=== PATIENT | male | born 2000 | race Hispanic/Latino ===

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

== ENCOUNTER 2021-03-31 19:19 | Emergency (ER) | payer OTHER, SELFPAY ==
--- OUTSIDE RECORDS SUMMARY | 2021-03-31 19:22 | XMS REPORT | Continuity of Care Document ---
:2000 Author Organization [facility] t Address [address] [place] [address] Care Team Providers Name Role Phone Francois [...] Clinicians Facility Department ID 2020-12-04 2020-12-04 [facility] [id number] 17:46:00 19:55:00 Erin Truong [id number] [place] [id number] [place] [id number] 2020-09-01 2020-09-02 [facility] [id number] 22:13:00 00:19:00 Bg Truong [id number] [place] [id number] [place] [id number] 2020-09-01 2020-09-01 Orders Doctor [place] [id number] 00:00:00 00:00:00 Only UnassignedRADHA [id number] [place] [facility] [id number] Results This patient has no known results.
--- NOTE | 2021-03-31 20:26 | RAD REPORT ---
EXAM DESCRIPTION: RAD - Foot Left 3 View - 03/31/2021 8:13 pm CLINICAL HISTORY: Left Foot pain status post injury FINDINGS: No fracture or dislocation is seen. Hallux valgus deformity. A radiopaque foreign body is not seen
--- NOTE | 2021-03-31 20:48 | EDPHYS ---
Physician Documentation [facility] Name: Fred Gaston Age: 20 yrs Sex: Male : 2000 Arrival Date: 03/31/2021 Time: 19:24 Bed 26 Private MD: ED Physician Sohan Fischer HPI: 03/31 20:05 This 20 yrs old Male presents to ER via Ambulatory with complaints of Foot cp Injury. 20:05 The patient presents with a puncture wound, from a nail. The complaints affect the cp plantar surface left foot. Context: the patient can fully bear weight, the patient is able to ambulate, with mild difficulty. Onset: The symptoms/episode began/occurred just prior to arrival. Associated signs and symptoms: The patient has no apparent associated signs or symptoms. Treatment prior to arrival includes: no previous treatment. Patient reports nail penetrated foot through shoes. Historical: - Allergies: 19:38 No Known Allergies; bb - Home Meds: 19:38 None [Active]; bb - PMHx: 19:38 None; bb - PSHx: 19:38 None; bb - Immunization history:: Last tetanus immunization: unknown. - Social history:: Smoking status: Patient denies any tobacco usage or history of. ROS: 20:10 Skin: Positive for puncture, of the plantar surface of left foot. cp 20:10 Constitutional: Negative for fever. cp 20:10 MS/extremity: Negative for paresthesias. 20:10 All other systems are negative. Exam: 20:15 Constitutional: The patient appears in no acute distress, alert, awake, non-toxic, well cp developed, well nourished. 20:15 Head/Face: Normocephalic, atraumatic. cp 20:15 Chest/axilla: Inspection: normal. 20:15 Cardiovascular: Rate: normal, Pulses: Pulses are 2+ in left dorsalis pedis artery. 20:15 Respiratory: the patient does not display signs of respiratory distress, Respirations: normal. 20:15 Skin: injury, that can be described as no foreign body, without bleeding, puncture(s), that are deep, of the plantar surface of left foot. Vital Signs: 19:37 BP 126 / 75; Pulse 84; Resp 16; Temp 98.6(TE); Pulse Ox 99% on R/A; Weight 72.57 kg bb (R); Height 5 ft. 11 in. (180.34 cm) (R); Pain 6/10; 19:37 Body Mass Index 22.32 (72.57 kg, 180.34 cm) bb MDM: 19:58 Patient medically screened. cp 20:00 Differential diagnosis: open fracture, foreign body. cp 20:47 Data reviewed: vital signs, nurses notes, radiologic studies, plain films. cp 20:47 Test interpretation: by ED physician or midlevel provider: plain radiologic studies. cp Counseling: I had a detailed discussion with the patient and/or guardian regarding: the historical points, exam findings, and any diagnostic results supporting the discharge/admit diagnosis, radiology results, to return to the emergency department if symptoms worsen or persist or if there are any questions or concerns that arise at home. Response to treatment: the patient's symptoms have markedly improved after treatment, and as a result, I will discharge patient. 03/31 19:58 Order name: XRAY Foot LEFT 3 View; Complete Time: 20:41 cp 03/31 20:41 Interpretation: Reviewed report. 03/31 19:58 Order name: Wound Care: normal saline and betadine; Complete Time: 21:50 cp 03/31 20:46 Order name: Wound dressing; Complete Time: 21:50 cp 03/31 20:46 Order name: Crutches; Complete Time: 21:50 cp Administered Medications: 20:37 Drug: Tetanus-Diphtheria Toxoid Adult 0.5 ml {Insight Director: [employer]. Exp: bb 11/27/2022. Lot #: [id number]. } Route: IM; Site: right deltoid; 21:00 Follow up: Response: No adverse reaction bb Disposition: 21:00 Chart complete. 04/01 05:44 Co-signature as Attending Physician, Sohan Fischer MD. rn Disposition Summary: 03/31/21 20:47 Discharge Ordered Location: Home cp Problem: new cp Symptoms: have improved cp Condition: Stable cp Diagnosis - Puncture wound without foreign body of foot - left cp Followup: cp - With: Private Physician - When: 2 - 3 days - Reason: Worsening of condition Discharge Instructions: - Discharge Summary Sheet cp - Puncture Wound cp Forms: - Medication Reconciliation Form cp - Thank You Letter cp - Antibiotic Education cp - Prescription Opioid Use cp Prescriptions: - Cipro 500 mg Oral Tablet - take 1 tablet by ORAL route every 12 hours for 7 days; 14 tablet; Refills: 0, cp Product Selection Permitted - Ibuprofen 800 mg Oral Tablet - take 1 tablet by ORAL route every 8 hours As needed take with food; 30 tablet; cp Refills: 0, Product Selection Permitted Signatures: Dispatcher [employer] Deisy Massey, DINH RN Sohan Freed MD MD rn Page, Corey, PA PA cp
--- NOTE | 2021-03-31 20:48 | ER ---
Nurse's Notes [facility] Name: Fred Gaston Age: 20 yrs Sex: Male : 2000 Arrival Date: 03/31/2021 Time: 19:24 Bed 26 Private MD: Diagnosis: Puncture wound without foreign body of foot-left Presentation: 03/31 19:37 Chief complaint: Patient states: he stepped on a nail with his left foot approx 2 hours bb ago. Coronavirus screen: At this time, the client does not indicate any symptoms associated with coronavirus-19. Ebola Screen: No symptoms or risks identified at this time. Initial Sepsis Screen: Does the patient meet any 2 criteria? No. Patient's initial sepsis screen is negative. Does the patient have a suspected source of infection? No. Patient's initial sepsis screen is negative. Risk Assessment: Do you want to hurt yourself or someone else? Patient reports no desire to harm self or others. Onset of symptoms was March 31, 2021. 19:37 Method Of Arrival: Ambulatory bb 19:37 Acuity: LEON 4 bb Triage Assessment: 19:38 General: Appears in no apparent distress. uncomfortable, Behavior is calm, cooperative. bb Pain: Complains of pain in left foot Pain currently is 6 out of 10 on a pain scale. Neuro: Level of Consciousness is awake, alert, obeys commands, Oriented to person, place, time, situation. Cardiovascular: Capillary refill < 3 seconds Patient's skin is warm and dry. Respiratory: Respiratory effort is even, unlabored, Respiratory pattern is regular. GI: No signs and/or symptoms were reported involving the gastrointestinal system. Derm: Skin is pink, warm \T\ dry. Musculoskeletal: Circulation, motion, and sensation intact. Reports pain in left foot. Injury Description: Puncture sustained to left foot. Historical: - Allergies: 19:38 No Known Allergies; bb - Home Meds: 19:38 None [Active]; bb - PMHx: 19:38 None; bb - PSHx: 19:38 None; bb - Immunization history:: Last tetanus immunization: unknown. - Social history:: Smoking status: Patient denies any tobacco usage or history of. Screenin:42 Abuse screen: Denies threats or abuse. Nutritional screening: No deficits noted. bb Tuberculosis screening: No symptoms or risk factors identified. Fall Risk None identified. Assessment: 19:42 Reassessment: No changes from previously documented assessment. see triage assessment. bb 21:30 Reassessment: Patient is alert, oriented x 3, equal unlabored respirations, skin bb warm/dry/pink. pt verbalized understanding of and agrees to plan of care discharge instructions given pt demonstrated good technique with crutches. Vital Signs: 19:37 BP 126 / 75; Pulse 84; Resp 16; Temp 98.6(TE); Pulse Ox 99% on R/A; Weight 72.57 kg bb (R); Height 5 ft. 11 in. (180.34 cm) (R); Pain 6/10; 19:37 Body Mass Index 22.32 (72.57 kg, 180.34 cm) bb ED Course: 19:24 Patient arrived in ED. ag3 19:38 Triage completed. bb 19:38 Arm band placed on Patient placed in an exam room, on a stretcher. bb 19:42 Deisy Kebede, RN is Primary Nurse. bb 19:42 Patient has correct armband on for positive identification. Bed in low position. Call bb light in reach. 19:54 Jayy Ceballos PA is PHCP. cp 19:54 Sohan Fischer MD is Attending Physician. cp 20:13 XRAY Foot LEFT 3 View In Process Unspecified. EDMS 20:38 Wound care: to puncture was soaked in Betadine solution. bb 21:30 Patient did not have IV access during this emergency room visit. bb 21:49 No provider procedures requiring assistance completed. bb Administered Medications: 20:37 Drug: Tetanus-Diphtheria Toxoid Adult 0.5 ml {Blending Supervisor: [employer]. Exp: bb 11/27/2022. Lot #: [id number]. } Route: IM; Site: right deltoid; 21:00 Follow up: Response: No adverse reaction bb Outcome: 20:47 Discharge ordered by . cp 21:30 Discharged to home ambulatory, with crutches. bb 21:30 Condition: stable 21:30 Discharge instructions given to patient, Instructed on discharge instructions, follow up and referral plans. medication usage, crutch walking, wound care, Demonstrated understanding of instructions, follow-up care, medications, wound care, crutch walking, Prescriptions given X 2. 21:47 Patient left the ED. bb Signatures: Dispatcher [employer] Deisy Massey, DINH RN bb Jayy Ceballos PA PA cp Gomez, Alice Soraya
[2021-03-31] MEDS ORDERED: TETANUS & DIPHTHERIA TOX,ADULT 0.5 ML VIAL ONE (20:54)
[2021-03-31 22:38] VITALS: BP 126/75; TEMP 98.6; O2SAT 99
== END 2021-03-31 21:47 | disposition home or self-care (01) ==
LOC: ER 19:19
DX: S91.332A Puncture wound without foreign body, left foot, initial encounter (principal); Z23 Encounter for immunization
CPT/HCPCS: 90471; 90714; 99284

== ENCOUNTER 2021-07-07 20:26 | Emergency (ER) | payer SELFPAY ==
[2021-07-07 21:19] LABS: Urine Blood Negative (Negative); Urine Glucose Negative (Negative); Urine Protein Negative (Negative); Urine Specific Gravity 1.025 (1.005-1.030); Urine pH 6.5 (5.0-7.0)
[2021-07-07] MEDS ORDERED: ONDANSETRON 4 MG/2 ML VIAL ONE (21:35)
[2021-07-07] MEDS ORDERED: NA CHLORIDE 0.9% 1,000 ML ONE (21:35)
[2021-07-07 21:41] LABS: Absolute Lymphocytes (CBC) 0.8 K/uL (0.7-4.9); Basophils % 0.2 % (0-1.3); Hematocrit 47.7 % (39.6-49.0); Lymphocytes % 6.2 % (15.3-44.8); MPV 8.7 fL (7.6-11.3); RBC Red Blood Cell Count 5.53 M/uL (4.33-5.43)
[2021-07-07 22:06] LABS: ALT/SGPT 21 U/L (12-78); AST/SGOT 13 U/L (15-37); Albumin 4.4 g/dL (3.4-5.0); Alkaline Phosphatase 100 U/L (45-117); BUN Blood Urea Nitrogen 13 mg/dL (7-18); Bicarbonate 23 mmol/L (21-32); Bilirubin Direct 0.1 mg/dL (0-0.2); Bilirubin Total 0.7 mg/dL (0.2-1.0); Glucose Level 99 mg/dL (74-106); Lipase 123 U/L (73-393); Protein, Total 8.3 g/dL (6.4-8.2); Sodium Level 140 mmol/L (136-145)
[2021-07-07] MEDS ORDERED: MORPHINE 4 MG/ML SYR ONE (23:59)
[2021-07-08 00:19] LABS: Blood Morphology Comment NOT SEEN (NOT SEEN); Platelet Estimate ADEQ
--- NOTE | 2021-07-08 00:38 | EDPHYS ---
Physician Documentation [facility] Name: Fred Gaston Age: 21 yrs Sex: Male : 2000 Arrival Date: 07/07/2021 Time: 20:30 Bed 20 Private MD: ED Physician Jayy Ndiaye HPI: 07/07 20:48 This 21 yrs old Male presents to ER via Ambulatory with complaints of jmm Vomiting, Weakness, Numbness. 20:48 The patient presents to the emergency department with nausea, vomiting. Onset: The jmm symptoms/episode began/occurred gradually. Possible causes: unknown. The symptoms are aggravated by nothing. The symptoms are alleviated by nothing. Associated signs and symptoms: Pertinent positives: abdominal pain. Historical: - Allergies: 20:40 No Known Allergies; sj1 - Home Meds: 20:40 None [Active]; sj1 - PMHx: 20:40 None; sj1 - PSHx: 20:40 None; sj1 - Immunization history:: Adult Immunizations unknown, Client reports having NOT received the Covid vaccine. - Social history:: Smoking status: Reported history of juuling and/or vaping. Patient uses alcohol, occasionally. street drugs, marijuana. ROS: 20:48 Constitutional: Negative for fever, chills, and weight loss, Cardiovascular: Negative jmm for chest pain, palpitations, and edema, Respiratory: Negative for shortness of breath, cough, wheezing, and pleuritic chest pain. 20:48 Abdomen/GI: Positive for abdominal pain. 20:48 All other systems are negative. Exam: 20:48 Constitutional: This is a well developed, well nourished patient who is awake, alert, jmm and in no acute distress. Head/Face: atraumatic. Eyes: EOMI, no conjunctival erythema appreciated ENT: Moist Mucus Membranes Neck: Trachea midline, Supple Chest/axilla: Normal chest wall appearance and motion. Cardiovascular: Regular rate and rhythm. No edema appreciated Respiratory: Normal respirations, no respiratory distress appreciated 20:48 Back: Normal ROM Skin: General appearance color normal MS/ Extremity: Moves all extremities, no obvious deformities appreciated, no edema noted to the lower extremities Neuro: Awake and alert, normal gait Psych: Behavior is normal, Mood is normal, Patient is cooperative and pleasant 20:48 Abdomen/GI: Inspection: abdomen appears normal, Bowel sounds: normal, Palpation: soft, mild abdominal tenderness, in the left lower quadrant. Vital Signs: 20:38 BP 138 / 65; Pulse 91; Resp 19 S; Temp 98.1(O); Pulse Ox 100% ; Weight 72.57 kg (R); sj1 Height 5 ft. 11 in. (180.34 cm) (R); Pain 8/10; 21:20 BP 138 / 81; Pulse 90; Resp 18; Pulse Ox 99% on R/A; lh3 20:38 Body Mass Index 22.32 (72.57 kg, 180.34 cm) sj1 MDM: 20:48 Patient medically screened. [facility] 07/08 00:37 Data reviewed: vital signs, nurses notes. Counseling: I had a detailed discussion with [facility] the patient and/or guardian regarding: the historical points, exam findings, and any diagnostic results supporting the discharge/admit diagnosis, radiology results, the need for outpatient follow up, to return to the emergency department if symptoms worsen or persist or if there are any questions or concerns that arise at home. ED course: Pain decreased in the ED. Advised to follow up with pcp and otherwise given strict return precautions. Patient understood and agrees with the plan of care. . 07/07 21:09 Order name: Basic Metabolic Panel; Complete Time: 22:12 [facility] 07/07 21:09 Order name: CBC with Diff; Complete Time: 00:21 [facility] 07/07 21:09 Order name: Hepatic Function; Complete Time: 22:12 [facility] 07/07 21:09 Order name: Lipase; Complete Time: 22:12 [facility] 07/07 21:18 Order name: Urine Dipstick-Ancillary; Complete Time: 21:43 [facility] 07/07 22:50 Order name: Manual Differential; Complete Time: 00:21 [facility] 07/07 21:09 Order name: IV Saline Lock; Complete Time: 21:14 [facility] 07/07 21:09 Order name: Labs collected and sent; Complete Time: 21:14 [facility] 07/07 21:09 Order name: CT Abd/Pelvis - IV Contrast Only [facility] 07/07 21:09 Order name: Urine Dipstick-Ancillary (obtain specimen); Complete Time: 21:19 [facility] Administered Medications: 07/07 21:14 Drug: NS 0.9% 1000 ml Route: IV; Rate: 1 bolus; Site: right antecubital; 3 23:40 Follow up: Response: No adverse reaction; IV Status: Completed infusion 3 21:19 Drug: Zofran (Ondansetron) 4 mg Route: IVP; Site: right antecubital; 3 21:51 Follow up: Response: No adverse reaction; Nausea is decreased 3 23:40 Drug: morphine 4 mg Route: IVP; Site: right antecubital; [facility] 07/08 01:07 Follow up: Response: No adverse reaction [facility] Disposition: 08:00 Co-signature as Attending Physician, Jayy Ndiaye MD I agree with the assessment and eliane plan of care. Disposition Summary: 07/08/21 00:38 Discharge Ordered Location: Home [facility] Condition: Stable [facility] Diagnosis - Abdominal pain, Generalized jmm - Diarrhea, unspecified jmm Followup: jmm - With: Private Physician - When: 2 - 3 days - Reason: Recheck today's complaints, Continuance of care, Re-evaluation by your physician Discharge Instructions: - Discharge Summary Sheet [facility] - Abdominal Pain, Adult jm - Form - Excuse from Work, School, or Physical Activity em Forms: - Medication Reconciliation Form [facility] - Thank You Letter [facility] - Antibiotic Education [facility] - Prescription Opioid Use [facility] Prescriptions: - ondansetron 4 mg Oral tablet,disintegrating - take 1 tablet by ORAL route every 4-6 hours; 20 tablet; Refills: 0, Product [facility] Selection Permitted - dicyclomine 20 mg Oral Tablet - take 1 tablet by ORAL route 4 times per day; 30 tablet; Refills: 0, Product [facility] Selection Permitted Signatures: Dispatcher [employer] Jayy Shi MD MD cha Mickail, Joel, PA PA jmm Hardee, Latisha RN RN lh3 Allison Macias RN RN sj1
--- NOTE | 2021-07-08 00:38 | ER ---
Nurse's Notes [facility] Name: Fred Gaston Age: 21 yrs Sex: Male : 2000 Arrival Date: 07/07/2021 Time: 20:30 Bed 20 Private MD: Diagnosis: Abdominal pain, Generalized;Diarrhea, unspecified Presentation: 07/07 20:38 Chief complaint: Patient states: c/o nausea and vomiting since this morning with LUQ sj1 pain that radiates to back. Coronavirus screen: Vaccine status: Patient reports being unvaccinated. Ebola Screen: No symptoms or risks identified at this time. Initial Sepsis Screen: Does the patient meet any 2 criteria? No. Patient's initial sepsis screen is negative. Does the patient have a suspected source of infection? No. Patient's initial sepsis screen is negative. Risk Assessment: Do you want to hurt yourself or someone else? Patient reports no desire to harm self or others. Onset of symptoms was July 07, 2021. 20:38 Method Of Arrival: Ambulatory sj1 20:38 Acuity: LEON 3 sj1 Triage Assessment: 20:40 General: Appears uncomfortable, Behavior is calm, cooperative, appropriate for age. sj1 Pain: Complains of pain in abdomen Pain radiates to back Pain currently is 8 out of 10 on a pain scale. at worst was 10 out of 10 on a pain scale. level that patient reports is acceptable is 0 out of 10 on a pain scale. Quality of pain is described as "discomfort" Pain began this morning Is continuous. GI: Reports upper abdominal pain, nausea, vomiting. : No signs and/or symptoms were reported regarding the genitourinary system. Derm: No signs and/or symptoms reported regarding the dermatologic system. Historical: - Allergies: 20:40 No Known Allergies; sj1 - Home Meds: 20:40 None [Active]; sj1 - PMHx: 20:40 None; sj1 - PSHx: 20:40 None; sj1 - Immunization history:: Adult Immunizations unknown, Client reports having NOT received the Covid vaccine. - Social history:: Smoking status: Reported history of juuling and/or vaping. Patient uses alcohol, occasionally. street drugs, marijuana. Screenin:42 Abuse screen: Denies threats or abuse. Denies injuries from another. Nutritional sj1 screening: No deficits noted. Tuberculosis screening: No symptoms or risk factors identified. Fall Risk None identified. Assessment: 21:20 General: Appears in no apparent distress. Behavior is calm, cooperative, appropriate lh3 for age. Pain: Denies pain. GI: Abdomen is flat, non-distended, Reports intolerance of fluids, intolerance of food, nausea, vomiting, since this morning. Vital Signs: 20:38 BP 138 / 65; Pulse 91; Resp 19 S; Temp 98.1(O); Pulse Ox 100% ; Weight 72.57 kg (R); sj1 Height 5 ft. 11 in. (180.34 cm) (R); Pain 8/10; 21:20 BP 138 / 81; Pulse 90; Resp 18; Pulse Ox 99% on R/A; lh3 20:38 Body Mass Index 22.32 (72.57 kg, 180.34 cm) 1 ED Course: 20:30 Patient arrived in ED. [facility] 20:40 Triage completed. sj1 20:40 Arm band placed on. sj1 20:42 Patient has correct armband on for positive identification. 1 20:47 Nirav Chowdhury PA is PHCP. [facility] 20:47 Jayy Ndiaye MD is Attending Physician. [facility] 20:58 Emlei Arguelles RN is Primary Nurse. lh3 21:19 Basic Metabolic Panel Sent. lh3 21:19 CBC with Diff Sent. lh3 21:19 Hepatic Function Sent. lh3 21:19 Lipase Sent. lh3 21:20 Door closed. Verbal reassurance given. lh3 21:20 No provider procedures requiring assistance completed. Inserted saline lock: 20 gauge lh3 in right antecubital area, using aseptic technique. Blood collected. 22:27 CT Abd/Pelvis - IV Contrast Only In Process Unspecified. EDMS 07/08 00:59 Patient did not have IV access during this emergency room visit. df1 Administered Medications: 07/07 21:14 Drug: NS 0.9% 1000 ml Route: IV; Rate: 1 bolus; Site: right antecubital; lh3 23:40 Follow up: Response: No adverse reaction; IV Status: Completed infusion lh3 21:19 Drug: Zofran (Ondansetron) 4 mg Route: IVP; Site: right antecubital; lh3 21:51 Follow up: Response: No adverse reaction; Nausea is decreased [facility] 23:40 Drug: morphine 4 mg Route: IVP; Site: right antecubital; [facility] 07/08 01:07 Follow up: Response: No adverse reaction [facility] Outcome: 00:38 Discharge ordered by MD. proctor 00:58 Discharged to home with family. df1 00:58 Condition: stable 00:58 Discharge instructions given to patient, Instructed on discharge instructions, follow up and referral plans. Demonstrated understanding of instructions, follow-up care, medications, Prescriptions given X 2. 01:08 Patient left the ED. [facility] Signatures: Dispatcher [employer] EDMS Nirav Chowdhury PA PA jmm Paniauga, Brittany bp1 Hardee, Latisha, RN RN 3 Lily Hurt df1 Allison Macias RN RN sj1 Corrections: (The following items were deleted from the chart) 07/07 21:20 21:20 Reassessment: [place] [id number]
[2021-07-08 05:14] VITALS: BP 138/81; O2SAT 99
--- NOTE | 2021-07-08 11:38 | RAD REPORT ---
EXAM DESCRIPTION: CT - Abdomen Pelvis W Contrast - 07/08/2021 7:21 am CLINICAL HISTORY: The patient is 21 years old and is Male; ABD PAIN TECHNIQUE: Axial computed tomography images of the abdomen and pelvis with intravenous contrast. S agittal and coronal reformatted images were created and reviewed. This CT exam was performed using one or more of the following dose reduction techniques: automated exposure control, adjustment of t he mA and/or kV according to patient size, and/or use of iterative reconstruction technique. DLP: 1017 mGy*cm COMPARISON: None. FINDINGS: LUNG BASES: Lung bases are clear. HEART: Visualized heart is normal. ABDOMEN: LIVER: Unremarkable. No mass. GALLBLADDER AND BILE DUCTS: Unremarkable. No calcified stones. No ductal dilation. PANCREAS: Unremarkable. No mass. No ductal dilation. SPLEEN: Unremarkable. No splenomegaly. ADRENALS: Unremarkable. No mass. KIDNEYS AND URETERS: Unremarkable. No solid mass. No hydronephrosis. STOMACH AND BOWEL: Unremarkable. No obstruction. No mucosal thickening. PELVIS: APPENDIX: The appendix is seen and is within normal limits. BLADDER: Bladder is decompressed. REPRODUCTIVE: Unremarkable as visualized. ABDOMEN and PELVIS: INTRAPERITONEAL SPACE: Unremarkable. No free air. No significant fluid collection. BONES/JOINTS: Straightening of the lumbar lordosis. No acute fracture. No dislocation. SOFT TISSUES: Unremarkable. VASCULATURE: No abdominal aortic aneurysm. LYMPH NODES: No enlarged lymph nodes. IMPRESSION: No acute abdominal or pelvic abnormality. Electronically signed by: Chas Vasquez DO 07/07/2021 10:44 PM CDT Due to temporary technical issues with the PACS/Fluency reporting system, reports are being signed by the in house radiologists without review as a courtesy to insure prompt reporting. The interpreting radiologist is fully responsible for the content of the report.
== END 2021-07-08 01:08 | disposition home or self-care (01) ==
LOC: ER 20:26
DX: R19.7 Diarrhea, unspecified (principal)
CPT/HCPCS: 36415; 74177; 80048; 80076; 81003; 83690; 85025; 96361; 96374; 96375; 99284; J2405; J7030; Q9967

== ENCOUNTER 2023-05-05 20:16 | Emergency (ER) | payer OTHER, SELFPAY ==
--- OUTSIDE RECORDS SUMMARY | 2023-05-05 20:19 | XMS REPORT | Continuity of Care Document ---
:2000 Author Organization [facility] t Address [address] [place] [address] Care Team Providers Name Role Phone Pcp, Patient Does Not Have A Primary Care Physician [id number] CIELO BURR Attending Clinician Unavailable Cielo Burr MD Attending Clinician Jenny Knight Attending Clinician JENNY BAKER Attending Clinician Unavailable Doctor Unassigned, [place] Attending Clinician Unavailable UNKNOWN, ATTENDING Attending Clinician Unavailable Byron Branham Attending Clinician BYRON KRISHNAN Attending Clinician Unavailable Meron Witt MD Attending Clinician MERON WITT Attending Clinician Unavailable MERON WITT Admitting Clinician Unavailable Payers Payer Name Policy Type Policy Number Effective Date Expiration Date S [facility] [id number] 2022 00:00:00 [facility] [id number] 2013 00:00:00 Problems Condition Condition Condition Status Onset Resolution Last Treating Co mments Source Name Details Category Date Date Treatment Clinician Date Acute Acute Disease Active Univers abdominal abdominal 4-03 ity of pain in pain in 00:00: [place] right right 00 Medical lower lower Branch quadrant quadrant 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 ICD10 Diagnosis Term Production Control Planner Utility Allergies, Adverse Reactions, Alerts Allergy Allergy Status Severity Reaction(s) Onset Inactive Treating Comm ents Source Name Type Date Date Clinician NO KNOWN Drug Active Univers ALLERGIE Class ity of S [facility] Social History Social Habit Start Date Stop Date Quantity Comments Source History of Passive smoker University tobacco use [facility] Exposure to 2022-07-04 2022-07-14 Not sure [facility] SARS-CoV-2 00:00:00 12:45:00 [facility] (event) [place] Alcohol intake 2022-07-14 2022-07-14 [facility] 00:00:00 00:00:00 [facility] Tobacco use and 2012-09-27 2012-09-27 Smokeless tobacco Un iversity of exposure 00:00:00 00:00:00 non-user [facility] Tobacco Comment 2012-09-27 2012-09-27 mom smokes Universit y of 00:00:00 00:00:00 outside [facility] Sex Assigned At [birth year] Universit y of 00:00:00 00:00:00 [facility] Smoking Status Start Date Stop Date Source Never smoked tobacco [facility] Medications Ordered Filled Start Stop Current Ordering Indication Dosage Frequency Signature Comments Components Source Medication Medication Date Date Medication? Clinician (SIG) Name Name cefTRIAXone 2021-09 500mg 500 mg, U nivers (ROCEPHIN) 09-13 Intramuscu it y of injection 18:00: 18:11 lar, ONCE, [place] 500 mg 00 :00 1 dose, On Medical Wed Branch 07/14/22 at 1300, JULY
Re ason for Anti-Infec tive: Documented Infection< br>Documen eric Infection Site: Urine
D uration of Therapy: Other (see Comments) ibuprofen 2021-09 Yes Take by Unive rs (ADVIL 09-13 mouth. ity of ORAL) 12:54: [place] [address] Medical Branch doxycycline 2021-09 Yes [id number] 100mg Take 1 Univers hyclate 100 09-13 capsule by it y of mg capsule 00:00: mouth in [place] 00 the Medical morning Branch and 1 capsule in the evening. phenazopyri 2021-09 Yes [id number] 200mg Take 1 Univers dine 200 mg 1-02 tablet by ity of tablet 00:00: mouth in [place] 00 the Medical morning Branch and 1 tablet at noon and 1 tablet in the evening. ibuprofen 2021-0 [facility] ([facility] 2-21 mouth. ity of ORAL) 11:33: [place] 15 Medical Branch methylPREDN 2021-0 Yes [id number] Take by Univers ISolone 4 2-21 mouth ity of mg tablets 00:00: SEE-INSTRU [place] 00 CTIONS. Medical follow Branch package directions hydrOXYzine 2021-0 Yes [id number] 50mg Take 1 Univers 50 mg 2-21 tablet by ity of tablet 00:00: mouth 3 [place] 00 (three) Medical times Branch daily as needed for Itching. methylPREDN 2021-0 Yes [id number] Take by Univers ISolone 4 2-21 mouth ity of mg tablets 00:00: SEE-INSTRU [place] 00 CTIONS. Medical follow Branch package directions hydrOXYzine 2021-0 Yes [id number] 50mg Take 1 Univers 50 mg 2-21 tablet by ity of tablet 00:00: mouth 3 [place] 00 (three) Medical times Branch daily as needed for Itching. famotidine 2020-0 Yes [id number] 40mg Take 1 Univers (PEPCID) 40 3-25 tablet by ity of mg tablet 00:00: mouth [place] 00 daily. Medical Branch ondansetron 2020-0 Yes [id number] 4mg Take 1 Univers (ZOFRAN 3-25 tablet by ity of ODT) 4 mg 00:00: mouth [place] disintegrat 00 every 8 Medic al ing tablet (eight) Branch hours as needed for Nausea and Vomiting (N/V). famotidine 2020-0 Yes [id number] 40mg Take 1 Univers (PEPCID) 40 3-25 tablet by ity of mg tablet 00:00: mouth [place] 00 daily. Medical Branch ondansetron 2020-0 Yes [id number] 4mg Take 1 Univers (ZOFRAN 3-25 tablet by ity of ODT) 4 mg 00:00: mouth [place] disintegrat 00 every 8 Medic al ing tablet (eight) Branch hours as needed for Nausea and Vomiting (N/V). famotidine Yes [id number] 40mg Take 1 Univers (PEPCID) 40 3-25 tablet by ity of mg tablet 00:00: mouth [place] 00 daily. Medical Branch ondansetron Yes [id number] 4mg Take 1 Univers (ZOFRAN 3-25 tablet by ity of ODT) 4 mg 00:00: mouth [place] disintegrat 00 every 8 Medic al ing tablet (eight) Branch hours as needed for Nausea and Vomiting (N/V). docusate 2019-09 Yes [id number] 250mg Take 1 Un [place] sodium 250 2-22 capsule by ity of mg capsule 00:00: mouth once [place] 00 daily as Medical needed for Branch Constipati on. dicyclomine 2019-09 Yes [id number] 10mg Take 1 Univers (BENTYL) 10 2-22 capsule by it y of mg capsule 00:00: mouth 4 [place] (four) Medical times Branch daily. docusate 2019-09 Yes [id number] 250mg Take 1 Un [place] sodium 250 2-22 capsule by ity of mg capsule 00:00: mouth once [place] 00 daily as Medical needed for Branch Constipati on. dicyclomine 2019-09 Yes [id number] 10mg Take 1 Univers (BENTYL) 10 2-22 capsule by it y of mg capsule 00:00: mouth [place] (four) Medical times Branch daily. docusate 2019-09 Yes [id number] 250mg Take 1 Un [place] sodium 250 2-22 capsule by ity of mg capsule 00:00: mouth once [place] 00 daily as Medical needed for Branch Constipati on. dicyclomine 2019-09 Yes [id number] 10mg Take 1 Univers (BENTYL) 10 2-22 capsule by it y of mg capsule 00:00: mouth [place] (four) Medical times Branch daily. ibuprofen Yes Take by [place] rs (ADVIL 5-20 mouth. ity of ORAL) 16:16: [place] 38 Medical Branch azithromyci Yes [id number] 250mg Take 1 Univers n 250 mg 2-15 tablet by ity of tablet 00:00: mouth [place] 00 SEE-INSTRU Medical CTIONS. Branch Take 500 mg day 1, then 250 mg days 2 to 5. azithromyci Yes [id number] 250mg Take 1 Univers n 250 mg 2-15 tablet by ity of tablet 00:00: mouth [place] 00 SEE-INSTRU Medical CTIONS. Branch Take 500 mg day 1, then 250 mg days 2 to 5. azithromyci 2019-0 Yes [id number] 250mg Take 1 Univers n 250 mg 2-15 tablet by ity of tablet 00:00: mouth [place] 00 SEE-INSTRU Medical CTIONS. Branch Take 500 mg day 1, then 250 mg days 2 to 5. Immunizations Ordered Immunization Filled Date Status Comments Sour ce Name Immunization Name [facility] 2016-04-26 Completed University [facility] 00:00:00 [facility] 2016-04-26 Completed University of 00:00:00 [facility] 2016-04-26 Completed University of 00:00:00 [facility] 2015-04-16 Completed University of 00:00:00 [facility] 2015-04-16 Completed University of 00:00:00 [facility] 2015-04-16 Completed University of 00:00:00 [facility] Influenza Virus 2013-06-06 Completed Universit y of Vaccine 00:00:00 [facility] Meningococcal 2013-06-06 Completed University of Oligosaccharide 00:00:00 [place] Med ical (groups A, C, Y and Branc h W-135) conjugate vaccine (MCV4O) TDAP 2013-06-06 Completed University of 00:00:00 [facility] Varicella 2013-06-06 Completed University of (varivax)(chicken pox) 00:00:00 [facility] HPV 2013-06-06 Completed University of 00:00:00 [facility] Influenza Virus 2013-06-06 Completed Universit y of Vaccine 00:00:00 [facility] Meningococcal 2013-06-06 Completed University of Oligosaccharide 00:00:00 [place] Med ical (groups A, C, Y and Branc h W-135) conjugate vaccine (MCV4O) TDAP 2013-06-06 Completed University of 00:00:00 [facility] Varicella 2013-06-06 Completed University of (varivax)(chicken pox) 00:00:00 [facility] HPV 2013-06-06 Completed University of 00:00:00 [facility] Influenza Virus 2013-06-06 Completed Universit y of Vaccine 00:00:00 [facility] Meningococcal 2013-06-06 Completed University of Oligosaccharide 00:00:00 [place] Med ical (groups A, C, Y and Branc h W-135) conjugate vaccine (MCV4O) TDAP 2013-06-06 Completed University of 00:00:00 [facility] Varicella 2013-06-06 Completed University of ([facility]ivax[facility] University of 00:00:00 [facility] Influenza Virus 2012-09-27 Completed Universit y of Vaccine 00:00:00 [facility] Influenza Virus 2012-09-27 Completed Universit y of Vaccine 00:00:00 [facility] Influenza Virus 2012-09-27 Completed Universit y of Vaccine 00:00:00 [facility] Influenza Virus 2008-07-25 Completed Universit y of Vaccine 00:00:00 [facility] Influenza Virus 2008-07-25 Completed Universit y of Vaccine 00:00:00 [facility] Influenza Virus 2008-07-25 Completed Universit y of Vaccine 00:00:00 [facility] HEPATITIS A 2006-09-22 Completed University of 00:00:00 [facility] HEPATITIS A 2006-09-22 Completed University of 00:00:00 [facility] HEPATITIS A 2006-09-22 Completed University of 00:00:00 [facility] DTAP 2005-12-06 Completed University of 00:00:00 [facility] HEPATITIS A 2005-12-06 Completed University of 00:00:00 [facility] MMR 2005-12-06 Completed University of 00:00:00 [facility] Pneumococcal 7 2005-12-06 Completed University of Conjugate, PCV7 00:00:00 [place] Med ical (Prevnar7) [place] Polio (IPV/OPV) 2005-12-06 Completed Universit y of 00:00:00 [facility] DTAP 2005-12-06 Completed University of 00:00:00 [facility] HEPATITIS A 2005-12-06 Completed University of 00:00:00 [facility] MMR 2005-12-06 Completed University of 00:00:00 [facility] Pneumococcal 7 2005-12-06 Completed University of Conjugate, PCV7 00:00:00 [place] Med ical (Prevnar7) [place] Polio (IPV/OPV) 2005-12-06 Completed Universit y of 00:00:00 [facility] DTAP 2005-12-06 Completed University of 00:00:00 [facility] HEPATITIS A 2005-12-06 Completed University of 00:00:00 [facility] MMR 2005-12-06 Completed University of 00:00:00 [facility] Pneumococcal 7 2005-12-06 Completed University of Conjugate, PCV7 00:00:00 [place] Med ical (Prevnar7) Branch Polio (IPV/OPV) 2005-12-06 Completed [facility] University of 00:00:00 [facility] Polio (IPV/OPV) 2003-10-17 Completed Universit y [facility]:00[facility]00 [facility] 2003-10-17 Completed University of 00:00:00 [facility] Polio (IPV/OPV) 2003-10-17 Completed Universit y [facility]:00[facility]00 [facility] 2003-10-17 Completed University of 00:00:00 [facility] Polio (IPV/OPV) 2003-10-17 Completed Universit y of 00:00:00 [facility] HIB 3 Dose Schedule 2002-12-06 Completed Unive rsity of 00:00:00 [facility] HIB 3 Dose Schedule 2002-12-06 Completed Unive rsity of 00:00:00 [facility] HIB 3 Dose Schedule 2002-12-06 Completed Unive rsity of 00:00:00 [facility] DTAP 2002-11-30 Completed University of 00:00:00 [facility] Hep B, Adol or Pedi 2002-11-30 Completed Unive rsity of Dosage 00:00:00 [facility] MMR 2002-11-30 Completed University of 00:00:00 [facility] Pneumococcal 7 2002-11-30 Completed University of Conjugate, PCV7 00:00:00 [facility] ical (Prevnar7) Branch Varicella 2002-11-30 Completed University of (varivax)(chicken pox) 00:00:00 [facility] HIB 3 Dose Schedule 2002-11-30 Completed Unive rsity of 00:00:00 [facility] DTAP 2002-11-30 Completed University of 00:00:00 [facility] Hep B, Adol or Pedi 2002-11-30 Completed Unive rsity of Dosage 00:00:00 [facility] MMR 2002-11-30 Completed University of 00:00:00 [facility] Pneumococcal 7 2002-11-30 Completed University of Conjugate, PCV7 00:00:00 [place] [facility] ical (Prevnar7) Branch Varicella 2002-11-30 Completed University of (varivax)(chicken pox) 00:00:00 [facility] HIB 3 Dose Schedule 2002-11-30 Completed Unive rsity of 00:00:00 [facility] DTAP 2002-11-30 Completed University of 00:00:00 [facility] Hep B, Adol or Pedi 2002-11-30 Completed Unive rsity of Dosage 00:00:00 [facility] MMR 2002-11-30 Completed University of 00:00:00 [facility] Pneumococcal 7 2002-11-30 Completed University of Conjugate, PCV7 00:00:00 [facility] ica (Prevnar7) Branch Varicella 2002-11-30 Completed University of (varivax)(chicken pox) 00:00:00 [facility] HIB 3 Dose Schedule 2002-11-30 Completed Unive rsity of 00:00:00 [facility] Hep B, Adol or Pedi 2002-10-04 Completed Unive rsity of Dosage 00:00:00 [facility] Pneumococcal 7 2002-10-04 Completed University of Conjugate, PCV7 00:00:[address] [facility] (Prevnar7) Branch Polio (IPV/OPV) 2002-10-04 Completed Universit y of 00:00:00 [facility] HIB 3 Dose Schedule 2002-10-04 Completed Unive rsity of 00:00:00 [facility] Hep B, Adol or Pedi 2002-10-04 Completed Unive rsity of Dosage 00:00:00 [facility] Pneumococcal 7 2002-10-04 Completed University of Conjugate, PCV7 00:00:00 [facility] ical (Prevnar7) Branch Polio (IPV/OPV) 2002-10-04 Completed Universit y of 00:00:00 [facility] HIB 3 Dose Schedule 2002-10-04 Completed Unive rsity of 00:00:00 [facility] Hep B, Adol or Pedi 2002-10-04 Completed Unive rsity of Dosage 00:00:00 [facility] Pneumococcal 7 2002-10-04 Completed University of Conjugate, PCV7 00:00:00 [place] Med ical (Prevnar7) Branch Polio (IPV/OPV) 2002-10-04 Completed Universit y of 00:00:00 [facility] HIB 3 Dose Schedule 2002-10-04 Completed Unive rsity of 00:00:00 [facility] DTAP 2001 Completed University of 00:00:00 [facility] Hep B, Adol or Pedi 2001 Completed Unive rsity of Dosage 00:00:00 [facility] Pneumococcal 7 2001 Completed University of Conjugate, PCV7 00:00:00 [facility] ical (Prevnar7) Branch Polio (IPV/OPV) 2001 Completed Universit y of 00:00:00 [facility] HIB 3 Dose Schedule 2001 Completed Unive rsity of 00:00:00 [facility] DTAP 2001 Completed University of 00:00:00 [facility] Hep B, Adol or Pedi 2001 Completed Unive rsity of Dosage 00:00:00 [facility] Pneumococcal 7 2001 Completed University of Conjugate, PCV7 00:00:00 [facility] ical (Prevnar7) Branch Polio (IPV/OPV) 2001 Completed Universit y of 00:00:00 [facility] HIB 3 Dose Schedule 2001 Completed Unive rsity of 00:00:00 [facility] DTAP 2001 Completed University of 00:00:00 [facility] Hep B, Adol or Pedi 2001 Completed Unive rsity of Dosage 00:00:00 [facility] Pneumococcal 7 2001 Completed University of Conjugate, PCV7 00:00:00 [facility] ical (Prevnar7) Branch Polio (IPV/OPV) 2001 Completed Universit y of 00:00:00 [facility] HIB 3 Dose Schedule 2001 Completed Unive rsity of 00:00:00 [facility] DTAP 2001 Completed University of 00:00:00 [facility] DTAP 2001 Completed University of 00:00:00 [facility] DTAP 2001 Completed University of 00:00:00 [facility] Hep B, Adol or Pedi 2001 Completed Unive rsity of Dosage 00:00:00 [place] [facility] Hep B, Adol or Pedi 2001 Completed Unive rsity of Dosage 00:00:00 [place] [facility] Hep B, Adol or Pedi 2001 Completed Unive rsity of Dosage 00:00:00 [facility] Vital Signs Vital Name Observation Time Observation Value Comments Source Systolic blood 2022-07-14 17:46:00 134 mm[Hg] Univer sity of pressure [place] [facility] Diastolic blood 2022-07-14 17:46:00 81 mm[Hg] Unive rsity of pressure [place] [facility] Heart rate 2022-07-14 17:46:00 74 /min Universi ty of [place] [facility] Body temperature 2022-07-14 17:46:00 36.06 Damaris Univ ersity of [place] [facility] Respiratory rate 2022-07-14 17:46:00 18 /min Univ ersity of [place] [facility] Body height 2022-07-14 17:46:00 180.3 cm Universi ty of [place] [facility] Body weight 2022-07-14 17:46:00 68.04 kg Universi ty of [place] [facility] BMI 2022-07-14 17:46:00 20.92 kg/m2 Universi ty of [place] [facility] Oxygen saturation in 2022-07-14 17:46:00 99 /min University of Arterial blood by [place] [facility] Pulse oximetry Branch Systolic blood 2021-11-02 17:33:00 132 mm[Hg] Univer sity of pressure [place] [facility] Diastolic blood 2021-11-02 17:33:00 83 mm[Hg] Unive rsity of pressure [place] [facility] Heart rate 2021-11-02 17:33:00 82 /min Universi ty of [place] [facility] Body temperature 2021-11-02 17:33:00 37.11 Damaris Univ ersity of [place] [facility] Respiratory rate 2021-11-02 17:33:00 16 /min Univ ersity of [place] [facility] Body weight 2021-11-02 17:33:00 68.04 kg Universi ty of [place] [facility] [place] Oxygen saturation in 2021-11-02 17:33:00 99 /min University of Arterial blood by [place] [facility] Pulse oximetry Branch Procedures Procedure Date / Time Performed Performing Clinician [facility] e CONSENT/REFUSAL FOR 2022-07-14 17:33:13 Doctor Unassigned, No Un iversity of [place] DIAGNOSIS AND Name Medical Branch TREATMENT NOTICE OF PRIVACY 2021-11-02 17:21:21 Doctor Unassigned, No Univ ersity of [place] PRACTICES Name [facility] Branch CONSENT/REFUSAL FOR 2021-11-02 17:20:37 Doctor Unassigned, No Un iversity of [place] DIAGNOSIS AND Name Medical Branch TREATMENT Encounters Start End Encounter Admission Attending Care Care Encounter Source Date/Time Date/Time Type Type Clinicians Facility Department ID 2022-07-14 2022-07-14 Emergency X NORMA [facility] ERT [id number] Univers 12:47:00 13:37:00 CIELO dolan [facility] 2022-07-14 2022-07-14 Emergency Norma [facility] [id number] Univers 12:47:00 13:37:00 Cielo [place] [id number] i ty of Michelet SAMUELS [id number] [facility] [id number] [place] [id number] [place] 2021-11-02 2021-11-02 [facility] [id number] Univers 11:37:00 12:38:00 Jenny [place] [id number] i ty of [place]IO[place] [id number] [facility] [id number] [place] [id number] [place] 2021-11-02 2021-11-02 Emergency [facility] [id number] Univers 11:37:00 12:38:00 JENNY dolan [facility] 2021-11-02 2021-11-02 Orders Doctor [place] [id number] Univers 00:00:00 00:00:00 Only Unassigned, RADHA [id number] ity of [place] [facility] [id number] [facility] [id number] [address] 2021-05-03 2021-05-03 Outpatient R UNKNOWN, [facility] [id number] Univers 13:00:00 13:00:00 ATTENDING kelsi [facility] 2020-12-04 2020-12-04 Emergency [facility] [id number] 17:46:00 19:55:00 Byron [place] [id number] [place] [id number] Byron [id number] 2020-12-04 2020-12-04 Emergency [facility] [id number] Univers 17:46:00 19:55:00 BYRON yoly [facility] 2020-09-01 2020-09-02 [facility] [id number] 22:13:00 00:19:00 Meron [place] [id number] [place] [id number] Byron [id number] 2020-09-01 2020-09-02 Emergency [facility] ERT [id number] Univers 22:13:00 00:19:00 MERON dolan [facility] 2020-09-01 2020-09-01 Orders Doctor [place] [id number] 00:00:00 00:00:00 Only Unassigned, RADHA [id number] [place] [id number] [id number] Results This patient has no known results.
--- NOTE | 2023-05-05 20:58 | EDPHYS ---
Physician Documentation [facility] Name: Fred Gaston Age: 22 yrs Sex: Male : 2000 Arrival Date: 05/05/2023 Time: 20:16 Bed Treatment Private MD: ED Physician Andres Gallego HPI: 05/05 20:20 This 22 yrs old Male presents to ER via Unassigned with complaints of Leg Pain.sp4 20:54 Patient actually presents with complaint of penile discharge starting yesterday. sp4 Patient reported clear discharge. He denied unprotected intercourse. Denied pain or burning on urination. . Historical: - Allergies: 20:27 No Known Allergies; as6 - Home Meds: 20:27 None [Active]; as6 - PMHx: 20:27 None; as6 - PSHx: 20:27 None; as6 - Immunization history:: Adult Immunizations up to date. - Social history:: Smoking status: Reported history of juuling and/or vaping. - Family history:: not pertinent. ROS: 20:55 Constitutional: Negative for fever, chills, and weight loss, : Negative for injury, sp4 bleeding, and swelling, positive penile discharge 20:55 All other systems are negative. sp4 Exam: 20:55 Constitutional: This is a well developed, well nourished patient who is awake, alert, sp4 and in no acute distress. Head/Face: Normocephalic, atraumatic. Eyes: Pupils equal round and reactive to light, extra-ocular motions intact. Lids and lashes normal. Conjunctiva and sclera are not injected. Cornea within normal limits. Periorbital areas with no swelling, redness, or edema. ENT: Nares patent. No nasal discharge, no septal abnormalities noted. Tympanic membranes are normal and external auditory canals are clear. Oropharynx with no redness, swelling, or masses, exudates, or evidence of obstruction, uvula midline. Mucous membranes moist. Neck: Trachea midline, no thyromegaly or masses palpated, and no cervical lymphadenopathy. Supple, full range of motion without nuchal rigidity, or vertebral point tenderness. Chest/axilla: Normal chest wall appearance and motion. Nontender with no deformity. No lesions are appreciated. Cardiovascular: Regular rate and rhythm with a normal S1 and S2. No gallops, murmurs, or rubs. Normal PMI, no JVD. No pulse deficits. Respiratory: Lungs have equal breath sounds bilaterally, clear to auscultation and percussion. No rales, rhonchi or wheezes noted. No increased work of breathing, no retractions or nasal flaring. Abdomen/GI: Soft, non-tender, with normal bowel sounds. No distension or tympany. No guarding or rebound. No evidence of tenderness throughout. Back: No spinal tenderness. No costovertebral tenderness. Male : Normal genitalia with no discharge or lesions. No lymphadenopathy, no scrotal rash, no penile rash, circumcised male, no inguinal hernias, no lesions, no chancres. Overall normal exam Skin: Warm, dry with normal turgor. Normal color with no rashes, no lesions, and no evidence of cellulitis. MS/ Extremity: Pulses equal, no cyanosis. Neurovascular intact. Full, normal range of motion. Neuro: Awake and alert, GCS 15, oriented to person, place, time, and situation. Cranial nerves II-XII grossly intact. Motor strength 5/5 in all extremities. Sensory grossly intact. Psych: Awake, alert, with orientation to person, place and time. Behavior, mood, and affect are within normal limits Vital Signs: 20:25 BP 154 / 86; Pulse 81; Resp 18 S; Temp 99.1(TE); Pulse Ox 100% on R/A; Weight 77.11 kg as6 (R); Height 5 ft. 11 in. (R); Pain 00/10; 21:46 BP 108 / 64; Pulse 78; Resp 20; Pulse Ox 99% on R/A; kl 20:25 Body Mass Index 23.71 (77.11 kg, 180.34 cm) as6 20:25 Pain Scale: Adult as6 MDM: 20:27 Patient medically screened. sp4 20:55 Differential diagnosis: Sexually-transmitted disease, herpes simplex virus, chlamydia, sp4 gonorrhea. Data reviewed: vital signs, nurses notes. ED course: Patient has normal exam today, we will administer treatment anyway, will prescribe 3 days of p.o. Flagyl. Will advise no sexual intercourse for the next 2 weeks.. 05/05 20:54 Order name: Urinalysis W/Microscopic sp4 Administered Medications: 21:35 Drug: Rocephin (cefTRIAXone) IM 500 mg Route: IM; Site: left ventrogluteal; kl 21:46 Follow up: Response: No adverse reaction kl 21:35 Drug: AZITHromycin PO 1 grams Route: PO; kl 21:46 Follow up: Response: No adverse reaction kl 21:35 Drug: metroNIDAZOLE PO 1 grams Route: PO; kl 21:46 Follow up: Response: No adverse reaction kl 21:35 Drug: Ondansetron PO 4 mg Route: PO; kl 21:46 Follow up: Response: No adverse reaction kl Disposition Summary: 05/05/23 20:58 Discharge Ordered Location: Home sp4 Problem: new sp4 Symptoms: have improved sp4 Condition: Stable sp4 Diagnosis - Penile discharge, possible exposure to STD sp4 Followup: sp4 - With: Private Physician - When: 7 - 10 days - Reason: Recheck today's complaints Discharge Instructions: - Discharge Summary Sheet sp4 - Preventing Sexually Transmitted Infections, Adult sp4 Forms: - Leadership Thank You Letter sp4 Prescriptions: - Flagyl 500 mg Oral Tablet - take 1 tablet by ORAL route every 12 hours for 3 days; 6 tablet; Refills: 0, sp4 Product Selection Permitted Signatures: Dispatcher [employer] Diamond Jesus RN RN kl Slawson, Ashby, RN RN as6 Andres Gallego MD MD sp4
--- NOTE | 2023-05-05 20:58 | ER ---
Nurse's Notes [facility] Name: Fred Gaston Age: 22 yrs Sex: Male : 2000 Arrival Date: 05/05/2023 Time: 20:16 Bed Treatment Private MD: Diagnosis: Penile discharge, possible exposure to STD Presentation: 05/05 20:25 Chief complaint: Patient states: penial discharge. Coronavirus screen: At this time, as6 the client does not indicate any symptoms associated with coronavirus-19. Ebola Screen: No symptoms or risks identified at this time. Initial Sepsis Screen: Does the patient meet any 2 criteria? No. Patient's initial sepsis screen is negative. Does the patient have a suspected source of infection? No. Patient's initial sepsis screen is negative. Risk Assessment: Do you want to hurt yourself or someone else? Patient reports no desire to harm self or others. Onset of symptoms was May 03, 2023. 20:25 Method Of Arrival: Ambulatory as6 20:25 Acuity: LEON 5 as6 Triage Assessment: 21:47 General: Appears in no apparent distress. Behavior is calm, cooperative, Smells of. kl Historical: - Allergies: 20:27 No Known Allergies; as6 - Home Meds: 20:27 None [Active]; as6 - PMHx: 20:27 None; as6 - PSHx: 20:27 None; as6 - Immunization history:: Adult Immunizations up to date. - Social history:: Smoking status: Reported history of juuling and/or vaping. - Family history:: not pertinent. Screenin:47 [facility] ED Fall Risk Assessment (Adult) History of falling in the last 3 months, kl including since admission No falls in past 3 months (0 pts) Confusion or Disorientation No (0 pts) Intoxicated or Sedated No (0 pts) Impaired Gait No (0 pts) Mobility Assist Device Used No (0 pt) Altered Elimination No (0 pt) Score/Fall Risk Level 0 - 2 = Low Risk Oriented to surroundings, Educated pt \T\ family on fall prevention, incl call for assistance when getting out of bed. Abuse screen: Denies threats or abuse. Nutritional screening: No deficits noted. Tuberculosis screening: No symptoms or risk factors identified. Assessment: 21:46 Reassessment: Patient appears in no apparent distress at this time. Patient denies pain kl at this time. Pain: Denies pain. Vital Signs: 20:25 BP 154 / 86; Pulse 81; Resp 18 S; Temp 99.1(TE); Pulse Ox 100% on R/A; Weight 77.11 kg as6 (R); Height 5 ft. 11 in. (R); Pain 00/10; 21:46 BP 108 / 64; Pulse 78; Resp 20; Pulse Ox 99% on R/A; kl 20:25 Body Mass Index 23.71 (77.11 kg, 180.34 cm) as6 20:25 Pain Scale: Adult as6 ED Course: 20:20 Patient arrived in ED. jj6 20:20 Andres Gallego MD is Attending Physician. sp4 20:27 Triage completed. as6 20:27 Arm band placed on. as6 21:41 Urinalysis W/Microscopic Sent. kl 21:41 GC (Nikos/Chl) Probe URINE Sent. kl 21:47 No provider procedures requiring assistance completed. Patient did not have IV access kl during this emergency room visit. Administered Medications: 21:35 Drug: Rocephin (cefTRIAXone) IM 500 mg Route: IM; Site: left ventrogluteal; kl 21:46 Follow up: Response: No adverse reaction kl 21:35 Drug: AZITHromycin PO 1 grams Route: PO; kl 21:46 Follow up: Response: No adverse reaction kl 21:35 Drug: metroNIDAZOLE PO 1 grams Route: PO; kl 21:46 Follow up: Response: No adverse reaction kl 21:35 Drug: Ondansetron PO 4 mg Route: PO; kl 21:46 Follow up: Response: No adverse reaction kl Outcome: 20:58 Discharge ordered by . sp4 21:47 Discharged to home ambulatory. kl 21:47 Discharge instructions given to patient, Instructed on discharge instructions, follow up and referral plans. medication usage, safe sex practices, Demonstrated understanding of instructions, follow-up care, medications, Prescriptions given X 1. 21:47 Condition: stable kl 21:48 Patient left the ED. kl Signatures: Diamond Sandhu, RN RN Giana Payan jj6 Williams Vasquez RN RN as Andres Gallego MD MD sp4
[2023-05-05] MEDS ORDERED: CEFTRIAXONE 1000 MG/VIAL ONE (21:41)
[2023-05-05] MEDS ORDERED: metroNIDAZOLE 500 MG TABLET ONE (21:41)
[2023-05-05] MEDS ORDERED: ONDANSETRON 4 MG (ODT) TAB ONE (21:42)
[2023-05-05] MEDS ORDERED: LIDOCAINE 1% MPF 2 ML AMPULE ONE (21:42)
[2023-05-05] MEDS ORDERED: AZITHROMYCIN 250 MG TAB ONE (21:44)
[2023-05-05 21:52] VITALS: TEMP 99.1
[2023-05-05 21:54] VITALS: BP 108/64; O2SAT 99
[2023-05-05 22:05] LABS: Specific Gravity 1.022 (1.005-1.030); Urine Bacteria None Seen /HPF (<20); Urine Bilirubin NEGATIVE (Negative); Urine Blood Negative (Negative); Urine Clarity Clear (Clear); Urine Color Light-Yellow (Yellow); Urine Glucose NEGATIVE (Negative); Urine Mucus Slight /HPF (None Seen); Urine Protein NEGATIVE (Negative); Urine RBC <5 /HPF (None Seen); Urine Urobilinogen Normal (Normal)
== END 2023-05-05 21:48 | disposition home or self-care (01) ==
LOC: ER 20:16
DX: R36.9 Urethral discharge, unspecified (principal)
CPT/HCPCS: 81001; 96372; 99284; J0696; Q0162

== ENCOUNTER 2024-08-07 16:30 | Emergency (ER) | payer SELFPAY ==
--- OUTSIDE RECORDS SUMMARY | 2024-08-07 16:32 | XMS REPORT | Continuity of Care Document ---
Author Name Unknown Address [address] [place] [address] [facility] thconnect Address [address] [place] [address] Care Team Providers Care Sas Analyst Name Role Phone Pcp, Patient Does Not Have A Primary Care Physic hao CIELO BURR Attending Clinician Unavail able Cielo Burr MD Attending Clinician [phone] Karlee Knight Attending Clinician [phone] KARLEE BAKER Attending Clinician Unavailable Doctor Unassigned, [place] Attending Clinician U navailable UNKNOWN, ATTENDING Attending Clinician Unavailab Byron Hollis Attending Clinician [phone] BYRON PARRISH Attending Clinician Unavailable Bg Witt MD Attending Clinician [phone] BG WITT Attending Clinician Unavailable BG WITT Admitting Clinician Unavailable Payers Payer Name Policy Type Policy Number Effective Date Expirati on Date Source [employer] [id number] 2022 00:00:00 [facility] [id number] 00:00:00 Problems Condition Name Condition Details Condition Category Status Onset Date Resolution Date Last Treatment Date Treating Clinician Comments Source Acute abdominal pain in right lower quadrant Acute abdominal pain in right lower quadrant Disease Active 12-13 00:00: 00 [facility] Mesenteric adenitis Mesenteric adenitis Disease Active 12-13 00:00: 00 [facility] Attention deficit hyperactiv ity disorder (ADHD) Attention deficit hyperactiv ity disorder (ADHD) Disease Active Overview: Formattin g of this note might be different from the original. ICD10 Diagnosis Term [employer] [facility] Allergies, Adverse Reactions, Alerts Allergy Name Allergy Type Status Severity Reaction(s) Onset Date Inactive Date Treating Clinician Comments Source NO KNOWN ALLERGIE S Drug Class Active [facility] Social History Social Habit Start Date Stop Date Quantity Comments Source History of tobacco use Passive smoker [facility] Exposure to SARS-CoV-2 (event) 2022-07-04 00:00:00 2022-07-14 12:45:00 Not sure [facility] Alcohol intake 2022-07-14 00:00:00 2022-07-14 00:00:00 [facility] Tobacco use and exposure 2012-09-27 00:00:00 2012-09-27 00:00:00 Smokeless tobacco non-user [facility] Tobacco Comment 2012-09-27 00:00:00 2012-09-27 00:00:00 mom smokes outside [facility] Sex Assigned At 2000 00:00:00 2000 00:00:00 [facility] Smoking Status Start Date Stop Date Source Never smoked tobacco [facility] Medications Ordered Medication Name Filled Medication Name Start Date Stop Date Current Medication? Ordering Clinician Indication Dosage Frequency Signature (SIG) Comments Components Source cefTRIAXone (ROCEPHIN) injection 500 mg 2021-09 18:00: 00 07-14 18:11 :00 No 500mg 500 mg, Intramuscu lar, ONCE, 1 dose, On Tue07/14/22 at 1300, JULY
Re ason for Anti-Infec tive: Documented Infection< br>Documen eric Infection Site: Urine
D uration of Therapy: Other (see Comments) [facility] ibuprofen (ADVIL ORAL) 2021-09 12:54: 53 Yes Take by mouth. [facility] doxycycline hyclate 100 mg capsule 2021-09 00:00: 00 Yes [id number] 100mg Take 1 capsule by mouth in the morning and 1 capsule in the evening. [facility] phenazopyri dine 200 mg tablet 2021-09 00:00: 00 Yes [id number] 200mg Take 1 tablet by mouth in the morning and 1 tablet at noon and 1 tablet in the evening. [facility] ibuprofen (ADVIL ORAL) 11-02 11:33: 15 Yes Take by mouth. [facility] methylPREDN ISolone 4 mg tablets 11-02 00:00: 00 Yes [id number] Take by mouth SEE-INSTRU CTIONS. follow package directions [facility] hydrOXYzine 50 mg tablet 11-02 00:00: 00 Yes [id number] 50mg Take 1 tablet by mouth 3 (three) times daily as needed for Itching. [facility] famotidine (PEPCID) 40 mg tablet 12-04 00:00: 00 Yes [id number] 40mg Take 1 tablet by mouth daily. [facility] ondansetron (ZOFRAN ODT) 4 mg disintegrat ing tablet 12-04 00:00: 00 Yes [id number] 4mg Take 1 tablet by mouth every 8 (eight) hours as needed for Nausea and Vomiting (N/V). [facility] docusate sodium 250 mg capsule 2019-09 00:00: 00 Yes [id number] 250mg Take 1 capsule by mouth once daily as needed for Constipati on. [facility] dicyclomine (BENTYL) 10 mg capsule 2019-09 00:00: 00 Yes [id number] 10mg Take 1 capsule by mouth 4 (four) times daily. [facility] ibuprofen (ADVIL ORAL) 01-29 16:16: 38 Yes Take by mouth. [facility] azithromyci n 250 mg tablet 10-27 00:00: 00 Yes [id number] 250mg Take 1 tablet by mouth SEE-INSTRU CTIONS. Take 500 mg day 1, then 250 mg days 2 to 5. [facility] Vital Signs Vital Name Observation Time Observation Value Comments S ource Systolic blood pressure 2022-07-14 17:46:00 134 mm[Hg] [facility] Diastolic blood pressure 2022-07-14 17:46:00 81 mm[Hg] [facility] Heart rate 2022-07-14 17:46:00 74 /min [facility] Body temperature 2022-07-14 17:46:00 36.06 [place] Respiratory rate 2022-07-14 17:46:00 18 /min [facility] Body height 2022-07-14 17:46:00 180.3 cm [facility] Body weight 2022-07-14 17:46:00 68.04 kg [facility] BMI 2022-07-14 17:46:00 20.92 kg/m2 [facility] Oxygen saturation in Arterial blood by Pulse oximetry 2022-07-14 17:46:00 99 /min [facility] Systolic blood pressure 2021-11-02 17:33:00 132 mm[Hg] [facility] Diastolic blood pressure 2021-11-02 17:33:00 83 mm[Hg] [facility] Heart rate 2021-11-02 17:33:00 82 /min [facility] Body temperature 2021-11-02 17:33:00 37.11 [place] Respiratory rate 2021-11-02 17:33:00 16 /min [facility] Body weight 2021-11-02 17:33:00 68.04 kg [facility] Oxygen saturation in Arterial blood by Pulse oximetry 2021-11-02 17:33:00 99 /min [facility] Procedures Procedure Date / Time Performed Performing Clinicia n Source CONSENT/REFUSAL FOR DIAGNOSIS AND TREATMENT 2022-07-14 17:33:13 Doctor Unassigned, [place] [facility] NOTICE OF PRIVACY PRACTICES 2021-11-02 17:21:21 Doctor Unassigned, [place] [facility] CONSENT/REFUSAL FOR DIAGNOSIS AND TREATMENT 2021-11-02 17:20:37 Doctor Unassigned, [place] [facility] Encounters Start Date/Time End Date/Time Encounter Type Admission Type Attending Clinicians Care Facility Care Department Encounter ID Source 2022-07-14 12:47:00 2022-07-14 13:37:00 Emergency X CIELO BURR [facility] [id number] [facility] 2022-07-14 12:47:00 2022-07-14 13:37:00 Emergency Cielo Burr [facility] [id number] [facility] 2021-11-02 11:37:00 2021-11-02 12:38:00 Emergency Karlee Baker [facility] [id number] [facility] 2021-11-02 11:37:00 2021-11-02 12:38:00 Emergency X KARLEE BAKER [facility] [id number] [facility] 2021-11-02 00:00:00 2021-11-02 00:00:00 Orders Only Doctor Unassigned, [place] [facility] [id number] [facility] 2021-05-03 13:00:00 2021-05-03 13:00:00 Outpatient R UNKNOWN, ATTENDING [facility] [id number] [facility] 2020-12-04 17:46:00 2020-12-04 19:55:00 Emergency Byron Parrish [facility] [id number] 2020-12-04 17:46:00 2020-12-04 19:55:00 Emergency X BYRON PARRISH [facility] E[facility] [id number] [facility] 2020-09-01 22:13:00 2020-09-02 00:19:00 Emergency Bg Witt [facility] [id number] 2020-09-01 22:13:00 2020-09-02 00:19:00 Emergency X DELMIS WITTNELL [facility] E[facility] [id number] [facility] 2020-09-01 00:00:00 2020-09-01 00:00:00 Orders Only Doctor Unassigned, [place] [facility] [id number]
[2024-08-07] MEDS ORDERED: LIDOCAINE VISCOUS 2% 10ML ORAL SOLN ONE (17:05)
[2024-08-07] MEDS ORDERED: MAGNES/ALUMIN/SIMET 30ML UCUP ONE (17:05)
--- NOTE | 2024-08-07 18:05 | EDPHYS ---
Physician Documentation [facility] Name: Fred Gaston Age: 24 yrs Sex: Male : 2000 Arrival Date: 08/07/2024 Time: 16:30 Bed DX4 Private MD: ED Physician Jayy Ndiaye HPI: 08/07 16:47 This 24 yrs old Male presents to ER via Unassigned with complaints of Mouth kb Problem, Sore Throat. 16:47 sore throat since . Today has red dot to top of mouth that is painful. Denies kb fever. Reports congestion. Historical: - Allergies: 16:58 No Known Allergies; iw - Home Meds: 16:58 None [Active]; iw - PMHx: 16:58 None; iw - PSHx: 16:58 None; iw - Immunization history:: Adult Immunizations not up to date. - Infectious Disease History:: Denies. - Social history:: Smoking status: Reported history of juuling and/or vaping. ROS: 16:48 Constitutional: As per HPI kb Exam: 16:48 Constitutional: This is a well developed, well nourished patient who is awake, alert, kb and in no acute distress. Head/Face: Normocephalic, atraumatic. ENT: Moist Mucous membranes Cardiovascular: Regular rate Respiratory: Respirations even and unlabored. No increased work of breathing. Talking in full sentences Skin: Warm, dry with normal turgor. Normal color. MS/ Extremity: Pulses equal, no cyanosis. Neurovascular intact. Full, normal range of motion. Neuro: Awake and alert, GCS 15, oriented to person, place, time, and situation. 16:48 ENT: Mouth: erythema to roof of mouth, Posterior pharynx: Airway: normal, no evidence of obstruction, Tonsils: bilaterally enlarged, with erythema, Uvula: normal, midline, swelling, that is mild, erythema, that is moderate, Vital Signs: 16:57 BP 133 / 76; Pulse 81; Resp 16; Temp 98.5; Pulse Ox 98% on R/A; Weight 81.65 kg; Height iw 6 ft. 0 in. ; Pain 6/10; 16:57 Body Mass Index 24.41 (81.65 kg, 182.88 cm) iw 16:57 Pain Scale: Adult iw MDM: 16:35 Medical Screening Exam initiated kb 18:03 Data reviewed: vital signs, nurses notes. kb 18:03 Differential diagnosis: strep, pharyngitis. kb 18:03 ED course: Pt elected to leave prior to discharge due to an emergency at home. . kb 08/07 16:52 Order name: Strep; Complete Time: 18:02 kb 08/07 17:30 Order name: Throat Culture EDMS Administered Medications: 17:09 Drug: GI Cocktail without - (Maalox PO 30 ml, Lidocaine Mucous Membrane 2 % 15 iw ml) PO once Route: PO; Disposition Summary: 08/07/24 18:04 Discharge Ordered Notes: Location: Home kb Condition: Stable kb Diagnosis - Acute pharyngitis, unspecified kb Followup: kb - With: Emergency Department - When: As needed - Reason: Worsening of condition Followup: kb - With: Private Physician - When: 2 - 3 days - Reason: Recheck today's complaints, Continuance of care, Re-evaluation by your physician Discharge Instructions: - Discharge Summary Sheet kb - Pharyngitis, [id number] kb Forms: - Medication Reconciliation Form kb - Antibiotic Education kb - Prescription Opioid Use kb - Patient Portal Instructions kb - Leadership Thank You Letter kb Prescriptions: - Augmentin 875-125 mg Oral Tablet - take 1 tablet ORAL route every 12 hours for 10 days; 20 tablet; Refills: 0, kb Product Selection Permitted Signatures: Dispatcher [employer] EDMS Su Earl, FLEX DENT-Fartun Rosales RN RN iw Corrections: (The following items were deleted from the chart) 16:48 16:47 sore throat since . Today has red dot to top of mouth that is painful. kb Denies fever. . kb 18:04 18:03 Counseling: I had a detailed discussion with the patient and/or guardian kb regarding the historical points, exam findings, and any diagnostic results supporting the discharge/admit diagnosis, lab results, the need for outpatient follow up, a family practitioner, to return to the emergency department if symptoms worsen or persist or if there are any questions or concerns that arise at home, kb 18:04 18:03 ED course: Pt elected to leave prior to discharge due to an emergency at home. . kb kb
--- NOTE | 2024-08-07 18:05 | ER ---
Nurse's Notes [facility] Name: Fred Gaston Age: 24 yrs Sex: Male : 2000 Arrival Date: 08/07/2024 Time: 16:30 Bed DX4 Private MD: Diagnosis: Acute pharyngitis, unspecified Presentation: 08/07 16:57 Chief complaint: Patient states: sore throat since . Coronavirus screen: Client iw presents with at least one sign or symptom that may indicate coronavirus-19. Ebola Screen: No symptoms or risks identified at this time. Initial Sepsis Screen: Does the patient meet any 2 criteria? No. Patient's initial sepsis screen is negative. Does the patient have a suspected source of infection? No. Patient's initial sepsis screen is negative. Risk Assessment: Do you want to hurt yourself or someone else? Patient reports no desire to harm self or others. Onset of symptoms was August 04, 2024. 16:57 Method Of Arrival: Ambulatory iw 16:57 Acuity: LEON 4 iw Triage Assessment: 17:15 General: Appears in no apparent distress. Behavior is calm, cooperative. iw Historical: - Allergies: 16:58 No Known Allergies; iw - Home Meds: 16:58 None [Active]; iw - PMHx: 16:58 None; iw - PSHx: 16:58 None; iw - Immunization history:: Adult Immunizations not up to date. - Infectious Disease History:: Denies. - Social history:: Smoking status: Reported history of juuling and/or vaping. Screenin:05 [facility] ED Fall Risk Assessment (Adult) History of falling in the last 3 months, iw including since admission No falls in past 3 months (0 pts) Confusion or Disorientation No (0 pts) Intoxicated or Sedated No (0 pts) Impaired Gait No (0 pts) Mobility Assist Device Used No (0 pt) Altered Elimination No (0 pt) Score/Fall Risk Level 0 - 2 = Low Risk Oriented to surroundings. Abuse screen: Denies threats or abuse. Denies injuries from another. Nutritional screening: No deficits noted. Tuberculosis screening: No symptoms or risk factors identified. Assessment: 17:00 General: Appears in no apparent distress. Pain: Complains of pain in throat. iw Respiratory: Airway is patent Respiratory effort is even, unlabored, EENT: Throat is reddened. Vital Signs: 16:57 BP 133 / 76; Pulse 81; Resp 16; Temp 98.5; Pulse Ox 98% on R/A; Weight 81.65 kg; Height iw 6 ft. 0 in. ; Pain 6/10; 16:57 Body Mass Index 24.41 (81.65 kg, 182.88 cm) iw 16:57 Pain Scale: Adult ED Course: 08/06 17:00 Arm band placed on. iw 08/07 16:35 Patient arrived in ED. mg5 16:35 Su Earl FNP-C is PHCP. kb 16:35 Jayy Ndiaye MD is Attending Physician. kb 16:58 Triage completed. iw 17:00 Patient has correct armband on for positive identification. Provided Education on: . iw 17:07 Fartun Bryant, RN is Primary Nurse. iw 18:05 No provider procedures requiring assistance completed. Patient did not have IV access iw during this emergency room visit. Administered Medications: 17:09 Drug: GI Cocktail without - (Maalox PO 30 ml, Lidocaine Mucous Membrane 2 % 15 iw ml) PO once Route: PO; Medication: 18:05 VIS not applicable for this client. iw Outcome: 18:04 Discharge ordered by . kb 18:06 Discharged to home ambulatory, iw 18:06 Condition: good 18:06 Instructed on medication usage, pt left before receiving d/c papers, called in prescription to [facility] pharmacy in [place] 18:07 Patient left the ED. iw Signatures: Su Earl FNP-C FNP-Fartun Rosales, RN RN Rosaura Burns mg5
[2024-08-07 23:30] VITALS: BP 133/76; TEMP 98.5; O2SAT 98
== END 2024-08-07 18:07 | disposition home or self-care (01) ==
LOC: ER 16:30
DX: J02.9 Acute pharyngitis, unspecified (principal)
CPT/HCPCS: 87070; 87081; 99283

== ENCOUNTER 2024-08-07 23:06 | Emergency (ER) | payer SELFPAY ==
--- NOTE | 2024-08-07 23:16 | EDPHYS ---
Physician Documentation [facility] Name: Fred Gaston Age: 24 yrs Sex: Male : 2000 Arrival Date: 08/07/2024 Time: 23:06 Bed IW1 Private MD: ED Physician Eyad Hou HPI: 08/07 23:15 This 24 yrs old Male presents to ER via Unassigned with complaints of Mouth kb Problem. 23:15 Pt is a 24 year old male who presents for pain to throat and roof of mouth that started kb 6 days ago and got worse today. Denies fever. Pt was here earlier today, but had an emergency and had to leave. Came back because the pain has not improved. Augmentin was called in for pt earlier, but he has not been able to pick it up. Requests first dose now. Historical: - Allergies: 23:32 No Known Allergies; ha1 - Immunization history:: Adult Immunizations up to date, Last tetanus immunization: up to date. - Infectious Disease History:: Denies. - Social history:: Smoking status: Reported history of juuling and/or vaping. ROS: 23:13 Constitutional: As per HPI kb Exam: 23:13 Constitutional: This is a well developed, well nourished patient who is awake, alert, kb and in no acute distress. Head/Face: Normocephalic, atraumatic. Cardiovascular: Regular rate Respiratory: Respirations even and unlabored. No increased work of breathing. Talking in full sentences Skin: Warm, dry with normal turgor. Normal color. MS/ Extremity: Pulses equal, no cyanosis. Neurovascular intact. Full, normal range of motion. Neuro: Awake and alert, GCS 15, oriented to person, place, time, and situation. 23:13 ENT: Posterior pharynx: Airway: normal, no evidence of obstruction, erythema, that is moderate, Vital Signs: 23:18 BP 143 / 89; Pulse 87; Resp 17 S; Temp 97.9(T); Pulse Ox 100% on R/A; Weight 83.46 kg; ha1 Height 6 ft. 0 in. ; Pain 9/10; 23:18 Body Mass Index 24.95 (83.46 kg, 182.88 cm) ha1 23:18 Pain Scale: Adult ha1 MDM: 23:11 Medical Screening Exam initiated kb 23:14 Differential diagnosis: strep, pharyngitis, abscess. Data reviewed: vital signs, nurses kb notes. Test considered but Not performed: Labs: strep test considered but completed earlier today and negative. Counseling: I had a detailed discussion with the patient and/or guardian regarding the historical points, exam findings, and any diagnostic results supporting the discharge/admit diagnosis, the need for outpatient follow up, an ENT specialist, to return to the emergency department if symptoms worsen or persist or if there are any questions or concerns that arise at home. Administered Medications: 23:27 Drug: Hydrocodone-Acetaminophen PO (7.5 mg-325 mg) 1 tabs PO once Route: PO; ha1 23:36 Follow up: Response: No adverse reaction; Marked relief of symptoms ha1 23:27 Drug: Amoxicillin-Clavulanate PO 875 mg PO once Route: PO; ha1 23:36 Follow up: Response: No adverse reaction; Marked relief of symptoms ha1 23:27 Drug: Ibuprofen PO 600 mg PO once Route: PO; ha1 23:36 Follow up: Response: No adverse reaction; Marked relief of symptoms ha1 Disposition Summary: 08/07/24 23:15 Discharge Ordered Notes: Location: Home Condition: Stable Diagnosis - Acute pharyngitis, unspecified kb Followup: kb - With: Emergency Department - When: As needed - Reason: Worsening of condition Followup: kb - With: Private Physician - When: 2 - 3 days - Reason: Recheck today's complaints, Continuance of care, Re-evaluation by your physician Followup: kb - With: Deya Ellis MD - When: 2 - 3 days - Reason: Recheck today's complaints Followup: kb - With: Bhavna Henriquez MD - When: 2 - 3 days - Reason: Recheck today's complaints Discharge Instructions: - Discharge Summary Sheet kb - Pharyngitis kb Forms: - Medication Reconciliation Form kb - Antibiotic Education kb - Prescription Opioid Use kb - Patient Portal Instructions kb - Leadership Thank You Letter kb Signatures: Su Earl FNP-C FNP-Ckb Ayala, Heidy, RN RN ha1
[2024-08-07] MEDS ORDERED: IBUPROFEN 400 MG TAB ONE (23:23)
[2024-08-07] MEDS ORDERED: HYDROCODONE/APAP 7.5/325 MG TAB ONE (23:23)
[2024-08-07] MEDS ORDERED: AMOX/K CLAV 875 MG TAB ONE (23:23)
[2024-08-07] MEDS ORDERED: IBUPROFEN 200 MG TAB PO ONE (23:23)
--- NOTE | 2024-08-07 23:37 | ER ---
Nurse's Notes [facility] Name: Fred Gaston Age: 24 yrs Sex: Male : 2000 Arrival Date: 08/07/2024 Time: 23:06 Bed IW1 Private MD: Diagnosis: Acute pharyngitis, unspecified Presentation: 08/07 23:18 Chief complaint: Patient states: possible tooth ache on the left side of mouth. ha1 23:18 Coronavirus screen: Vaccine status: Patient reports being unvaccinated. Ebola Screen: ha1 No symptoms or risks identified at this time. Initial Sepsis Screen: Does the patient meet any 2 criteria? No. Patient's initial sepsis screen is negative. Does the patient have a suspected source of infection? No. Patient's initial sepsis screen is negative. Risk Assessment: Do you want to hurt yourself or someone else? Patient reports no desire to harm self or others. Onset of symptoms was August 07, 2024. 23:18 Method Of Arrival: Ambulatory ha1 23:18 Acuity: LEON 5 ha1 Triage Assessment: 23:18 General: Appears uncomfortable, Behavior is cooperative. Pain: Complains of pain in ha1 mouth Pain does not radiate. Pain currently is 9 out of 10 on a pain scale. Quality of pain is described as aching, throbbing. Neuro: Level of Consciousness is awake, alert, obeys commands, Oriented to person, place, time, situation. Cardiovascular: Capillary refill < 3 seconds Patient's skin is warm and dry. Respiratory: Airway is patent Respiratory effort is even, unlabored, Respiratory pattern is regular, symmetrical. GI: No signs and/or symptoms were reported involving the gastrointestinal system. Abdomen is flat, non-distended. Derm: Skin is pink, warm \T\ dry. Musculoskeletal: Circulation, motion, and sensation intact. Range of motion: intact in all extremities. Historical: - Allergies: 23:32 No Known Allergies; ha1 - Immunization history:: Adult Immunizations up to date, Last tetanus immunization: up to date. - Infectious Disease History:: Denies. - Social history:: Smoking status: Reported history of juuling and/or vaping. Screenin:18 [facility] ED Fall Risk Assessment (Adult) History of falling in the last 3 months, ha1 including since admission No falls in past 3 months (0 pts) Confusion or Disorientation No (0 pts) Intoxicated or Sedated No (0 pts) Impaired Gait No (0 pts) Mobility Assist Device Used No (0 pt) Altered Elimination No (0 pt) Score/Fall Risk Level 0 - 2 = Low Risk Oriented to surroundings, Maintained a safe environment, Educated pt \T\ family on fall prevention, incl call for assistance when getting out of bed, Hourly rounding (assess needs \T\ fall precautionary measures) done. Abuse screen: Denies threats or abuse. Denies injuries from another. Nutritional screening: No deficits noted. Tuberculosis screening: No symptoms or risk factors identified. Vital Signs: 23:18 BP 143 / 89; Pulse 87; Resp 17 S; Temp 97.9(T); Pulse Ox 100% on R/A; Weight 83.46 kg; ha1 Height 6 ft. 0 in. ; Pain 9/10; 23:18 Body Mass Index 24.95 (83.46 kg, 182.88 cm) ha1 23:18 Pain Scale: Adult ha1 ED Course: 23:08 Patient arrived in ED. jj6 23:11 Su Earl FNP-C is PHCP. kb 23:11 Eyad Hou MD is Attending Physician. kb 23:15 Deya Ellis MD is Referral Physician. kb 23:15 Bhavna Henriquez MD is Referral Physician. kb 23:18 Arm band placed on right wrist. ha1 23:18 Patient has correct armband on for positive identification. Adult w/ patient. ha1 23:18 Provided Education on: following up with dentist . ha1 23:32 Triage completed. ha1 23:34 No provider procedures requiring assistance completed. Patient did not have IV access ha1 during this emergency room visit. Administered Medications: 23:27 Drug: Hydrocodone-Acetaminophen PO (7.5 mg-325 mg) 1 tabs PO once Route: PO; ha1 23:36 Follow up: Response: No adverse reaction; Marked relief of symptoms ha1 23:27 Drug: Amoxicillin-Clavulanate PO 875 mg PO once Route: PO; ha1 23:36 Follow up: Response: No adverse reaction; Marked relief of symptoms ha1 23:27 Drug: Ibuprofen PO 600 mg PO once Route: PO; ha1 23:36 Follow up: Response: No adverse reaction; Marked relief of symptoms ha1 Medication: 23:35 VIS not applicable for this client. ha1 Outcome: 23:15 Discharge ordered by MD. rosas 23:35 Discharged to home ambulatory, with family, ha1 23:35 Condition: stable 23:35 Discharge instructions given to patient, family, Instructed on discharge instructions, follow up and referral plans. no driving heavy equipment, Demonstrated understanding of instructions, follow-up care, 23:36 Patient left the ED. ha1 Signatures: Su Earl FNP-C FILIPE-Giana Álvarez jj6 Lora Harrison, RN RN ha1
[2024-08-08 06:53] VITALS: BP 143/89; TEMP 97.9; O2SAT 100
== END 2024-08-07 23:36 | disposition home or self-care (01) ==
LOC: ER 23:06
DX: J02.9 Acute pharyngitis, unspecified (principal)
CPT/HCPCS: 99283

== ENCOUNTER 2024-11-27 19:00 | Emergency (ER) | payer SELFPAY ==
[2024-11-27] MEDS ORDERED: ACETAMINOPHEN 500 MG TAB ONE (19:26)
[2024-11-27] MEDS ORDERED: IBUPROFEN 400 MG TAB ONE (19:27)
[2024-11-27 19:49] LABS: Specific Gravity 1.017 (1.005-1.030); Sqamous Epithelial None Seen /HPF (None Seen); Urine Bacteria None Seen /HPF (<20); Urine Bilirubin NEGATIVE (Negative); Urine Blood Negative (Negative); Urine Clarity Turbid (Clear); Urine Color Light-Yellow (Yellow); Urine Crystals Unidentified Few /HPF (None Seen); Urine Culture Reflex Order NOT NEEDED; Urine Glucose NEGATIVE (Negative); Urine Ketones NEGATIVE (Negative); Urine Microscopic Reflex YN ORDER UMIC; Urine Mucus Slight /HPF (None Seen); Urine Nitrite NEGATIVE (Negative); Urine Protein NEGATIVE (Negative); Urine RBC <5 /HPF (None Seen); Urine Urobilinogen Normal (Normal); Urine WBC <5 /HPF (<5); Urine Yeast (Budding) Occasional /HPF (None Seen); Urine pH 6.5 (5.0-7.0)
[2024-11-27 20:02] LABS: Influenza A Ag Negative; Influenza B Ag Negative; SARS-CoV-2 Antigen Rapid Res Negative (Negative)
--- NOTE | 2024-11-27 20:27 | RAD REPORT ---
EXAMINATION: TWO VIEW CHEST XR CLINICAL INDICATION: Congestion;Cough TECHNIQUE: 2 views of the chest was performed. COMPARISON: No prior exam. FINDINGS: The lungs are well inflated and clear. The heart is normal in size. No displaced fractures evident. IMPRESSION: No acute or significant abnormalities.
[2024-11-27] MEDS ORDERED: ONDANSETRON 4 MG/2 ML VIAL ONE (20:50)
[2024-11-27] MEDS ORDERED: KETOROLAC 30 MG/ML INJ ONE (20:51)
[2024-11-27] MEDS ORDERED: NA CHLORIDE 0.9% 1,000 ML ONE (20:51)
[2024-11-27 20:53] LABS: Absolute Eosinophils 0.3 K/uL (0-0.5); Absolute Lymphocytes (CBC) 1.5 K/uL (0.7-4.9); Absolute Monocytes 1.1 K/uL (0.1-1.3); Absolute Neutrophil 4.5 K/uL (1.8-8.0); Basophils % 0.4 % (0-1.3); Eosinophils % 4.4 % (0-4.4); Hematocrit 45.3 % (39.6-49.0); Hemoglobin 15.8 g/dL (13.6-17.9); Lymphocytes % 20.2 % (15.3-44.8); MCHC 34.8 g/dL (32.0-36.0); MCV 86.3 fL (80-100); MPV 8.3 fL (7.6-11.3); Monocytes % 15.2 % (3.3-12.3); Neutrophils % 59.8 % (41.7-73.7); Nucleated Red Blood Cells % 0.1 % (0-0); Platelets 254 thou/uL (152-406); RBC Red Blood Cell Count 5.25 M/uL (4.33-5.43); Red Cell Distribution Width 13.3 % (12.1-15.2)
[2024-11-27 21:08] LABS: Albumin/Globulin Ratio 0.9 (1.1-1.8); Anion Gap 7.8 mEq/L (5.0-15.0); Bilirubin Total 0.5 mg/dL (0.2-1.0); Globulin 4.4 g/dL (2.3-3.5); Potassium 3.8 mEq/L (3.5-5.1); Protein, Total 8.4 g/dL (6.4-8.2)
--- NOTE | 2024-11-27 21:53 | RAD REPORT ---
EXAMINATION: CT ABDOMEN AND PELVIS WITH CONTRAST CLINICAL INDICATION: right flank pain ;Abd pain TECHNIQUE: CT abdomen and pelvis was performed, after the administration of IV contrast, as per [facility] protocol. Axial, sagittal and coronal reconstructions were obtained. One or more of the following dose reduction techniques were used: Automated exposure control, adjustment of the mA and k V according to patient size, and iterative reconstruction. Unless otherwise specified, incidental findings do not require dedicated imaging follow-up. COMPARISON: No prior exam. FINDINGS: LOWER CHEST: The visualized lung bases are clear. LIVER: Normal in size and contour. No focal lesion. Grossly unremarkable gallbladder. SPLEEN: Normal size. No focal lesion. PANCREAS: No mass, ductal dilation, or sharonda-pancreatic fluid. ADRENALS: Normal; no mass. KIDNEYS: Normal size and contour. No hydronephrosis. GASTROINTESTINAL TRACT: No evidence of free air, significant intra-abdominal free fluid, bowel obstru ction or abscess. APPENDIX: Normal appendix. LYMPH NODES: No lymphadenopathy. MUSCULOSKELETAL: No acute or suspicious osseous abnormality. ADDITIONAL FINDINGS: Small fat-containing ventral hernia. IMPRESSION: No acute or concerning abnormalities seen in the abdomen or pelvis.
--- NOTE | 2024-11-27 22:37 | EDPHYS ---
Physician Documentation [facility] Name: Fred Gaston Age: 24 yrs Sex: Male : 2000 Arrival Date: 11/27/2024 Time: 19:00 Bed 17 Private MD: ED Physician Andres Gallego HPI: 11/27 20:03 This 24 yrs old Male presents to ER via Ambulatory with complaints of Back sp4 Pain, Flu Symptoms. 11/28 20:29 Patient presents with complaint of right flank pain associated with cough congestion sp4 generalized bodyaches and headache. Historical: - Allergies: 11/27 19:28 No Known Allergies; vc1 - Home Meds: 19:28 None [Active]; vc1 - PMHx: 19:28 None; vc1 - PSHx: 19:28 None; vc1 - Immunization history:: Client reports having NOT received the Covid vaccine. - Infectious Disease History:: Denies. - Social history:: Smoking status: Patient reports the use of cigarette tobacco products, few a day. - Family history:: not pertinent. ROS: 11/28 20:29 Constitutional: Positive fever, positive cough, positive congestion, positive body sp4 aches, positive right flank pain, positive headache. All other systems are negative, Exam: 20:29 Constitutional: This is a well developed, well nourished patient who is awake, alert, sp4 and in no acute distress. Head/Face: Normocephalic, atraumatic. Eyes: Pupils equal round and reactive to light, extra-ocular motions intact. Lids and lashes normal. Conjunctiva and sclera are not injected. Cornea within normal limits. Periorbital areas with no swelling, redness, or edema. ENT: Nares patent. No nasal discharge, no septal abnormalities noted. Tympanic membranes are normal and external auditory canals are clear. Oropharynx with no redness, swelling, or masses, exudates, or evidence of obstruction, uvula midline. Mucous membranes moist. Neck: Trachea midline, no thyromegaly or masses palpated, and no cervical lymphadenopathy. Supple, full range of motion without nuchal rigidity, or vertebral point tenderness. Chest/axilla: Normal chest wall appearance and motion. Nontender with no deformity. No lesions are appreciated. Cardiovascular: Regular rate and rhythm with a normal S1 and S2. No gallops, murmurs, or rubs. Normal PMI, no JVD. No pulse deficits. Respiratory: Lungs have equal breath sounds bilaterally, clear to auscultation and percussion. No rales, rhonchi or wheezes noted. No increased work of breathing, no retractions or nasal flaring. Abdomen/GI: Soft, with normal bowel sounds. No distension or tympany. No guarding or rebound. No evidence of tenderness throughout. Back: No spinal tenderness. No costovertebral tenderness. Skin: Warm, dry with normal turgor. Normal color with no rashes, no lesions, and no evidence of cellulitis. MS/ Extremity: Pulses equal, no cyanosis. Neurovascular intact. Full, normal range of motion. Neuro: Awake and alert, GCS 15, oriented to person, place, time, and situation. Cranial nerves II-XII grossly intact. Motor strength 5/5 in all extremities. Sensory grossly intact. Psych: Awake, alert, with orientation to person, place and time. Behavior, mood, and affect are within normal limits Vital Signs: 11/27 19:25 BP 156 / 92; Pulse 82; Resp 18; Temp 99.2; Pulse Ox 99% ; Weight 83.91 kg; Height 6 ft. vc1 0 in. ; Pain 6/10; 21:40 BP 137 / 90; Pulse 76; Resp 18; Pulse Ox 99% ; cp4 22:46 BP 134 / 88; Pulse 74; Resp 18; Pulse Ox 99% ; cp4 19:25 Body Mass Index 25.09 (83.91 kg, 182.88 cm) vc1 19:25 Pain Scale: Adult vc1 [place] Coma Score: 11/28 20:29 Eye Response: spontaneous(4). Motor Response: obeys commands(6). Verbal Response: sp4 oriented(5). Total: 15. MDM: 11/27 20:17 Medical Screening Exam initiated sp4 11/28 20:29 Differential diagnosis: arthritis, Hydronephrosis Pyelonephritis spinal injury, sprain. sp4 Data reviewed: vital signs, nurses notes, lab test result(s), radiologic studies, CT scan, plain films. Consideration of Admission/Observation Escalation of care including admission/observation considered. ED course: Workup today is unremarkable. Patient stable for discharge home.. 11/27 19:28 Order name: COVID-19 Ag + Flu A+B Ag; Complete Time: 20:18 sb4 11/27 19:31 Order name: Group A Streptococcus Rapid; Complete Time: 20:18 vc1 11/27 19:31 Order name: Urinalysis w/ reflexes; Complete Time: 20:18 vc1 11/27 20:04 Order name: Throat Culture EDMS 11/27 20:25 Order name: CBC with Diff; Complete Time: 22:31 sp4 11/27 20:25 Order name: CMP; Complete Time: 22:31 sp4 11/27 20:25 Order name: Lipase; Complete Time: 22:31 sp4 11/27 19:29 Order name: Chest Pa And Lat (2 Views) XRAY; Complete Time: 22:31 sb4 11/27 20:25 Order name: CT Abd/Pelvis - IV Contrast Only; Complete Time: 22:31 sp4 11/27 20:25 Order name: IV Saline Lock; Complete Time: 20:39 sp4 11/27 20:25 Order name: Labs collected and sent; Complete Time: 20:39 sp4 Administered Medications: 11/27 19:36 Drug: Ibuprofen PO 800 mg PO once Route: PO; vc1 19:36 Drug: Acetaminophen PO 1000 mg PO once Route: PO; vc1 20:54 Drug: TORadol - Ketorolac IVP 15 mg IVP once Route: IVP; Site: right antecubital; cp4 21:27 Follow up: Response: No adverse reaction; Pain is decreased cp4 20:54 Drug: Ondansetron IVP 4 mg IVP once; over 2 minutes Route: IVP; Site: right antecubital;cp4 21:27 Follow up: Response: No adverse reaction cp4 20:54 Drug: NS 0.9% IV 1000 ml IV at 1 bolus Per protocol; to be given as a bolus over 60 cp4 minutes Route: IV; Rate: 1 bolus; Site: right antecubital; 22:45 Follow up: IV Status: Completed infusion cp4 Disposition Summary: 11/27/24 22:36 Discharge Ordered Notes: Location: Home sp4 Problem: new sp4 Symptoms: have improved sp4 Condition: Stable sp4 Diagnosis - Acute right flank pain, acute viral syndrome sp4 Followup: sp4 - With: Private Physician - When: 7 - 10 days - Reason: Recheck today's complaints Discharge Instructions: - Discharge Summary Sheet sp4 - Viral Illness, Adult sp4 Forms: - Patient Portal Instructions sp4 Prescriptions: - dextromethorphan-guaifenesin 20-400 mg Oral tablet - take 1 tablet ORAL route every 4 hours PRN cougn; 60 tablet; Refills: 0, sp4 Product Selection Permitted - Ibuprofen 800 mg Oral Tablet - take 1 tablet ORAL route every 8 hours As needed take with food; 30 tablet; sp4 Refills: 0, Product Selection Permitted - methocarbamol 750 mg Oral tablet - take 2 tablets ORAL route 4 times per day for 2 days PRN muscular pain; 60 sp4 tablet; Refills: 0, Product Selection Permitted - ondansetron 8 mg Oral Tablet,disintegrating - take 1 tablet ORAL route every 8 hours PRN nausea; 30 tablet; Refills: 0, sp4 Product Selection Permitted Signatures: Dispatcher [employer] EDMS Ariana Ceron RN RN vc1 Gaby Sandra PA-C PAMarliC sb4 Andres Gallego MD MD sp4 Lashawn Huddleston 4 Corrections: (The following items were deleted from the chart) 19:28 19:28 COVID-19 Ag + Flu A+B Ag+I.LAB.BRZ ordered. EDMS EDMS 19:29 19:28 PSHx: Unable to Obtain; vc1 vc1 20:26 20:26 CBC+H.LAB.BRZ ordered. EDMS EDMS 20:26 20:26 COMPREHENSIVE METABOLIC PANEL+C.LAB.BRZ ordered. EDMS EDMS 20:26 20:26 LIPASE+C.LAB.BRZ ordered. EDMS EDMS
--- NOTE | 2024-11-27 22:37 | ER ---
Nurse's Notes [facility] Name: Fred Gaston Age: 24 yrs Sex: Male : 2000 Arrival Date: 11/27/2024 Time: 19:00 Bed 17 Private MD: Diagnosis: Acute right flank pain, acute viral syndrome Presentation: 11/27 19:25 Chief complaint: Patient states: chest hurting when I cough and left lower back pain vc1 that hurts worse when I touch it or cough and sneeze. Coronavirus screen: Client denies travel out of the [place] in the last 14 days. congestion, cough unrelated to allergies, fever, headache, shaking with chills, shortness of breath, sore throat, Client presents with at least one sign or symptom that may indicate coronavirus-19. Ebola Screen: Patient negative for fever greater than or equal to 101.5 degrees Fahrenheit, and additional compatible Ebola Virus Disease symptoms Patient denies exposure to infectious person. Patient denies travel to an Ebola-affected area in the 21 days before illness onset. No symptoms or risks identified at this time. Initial Sepsis Screen: Does the patient meet any 2 criteria? No. Patient's initial sepsis screen is negative. Does the patient have a suspected source of infection? No. Patient's initial sepsis screen is negative. Risk Assessment: Do you want to hurt yourself or someone else? Patient reports no desire to harm self or others. Onset of symptoms was November 25, 2024. 19:25 Method Of Arrival: Ambulatory vc1 19:25 Acuity: LEON 4 vc1 Triage Assessment: 19:29 General: Appears in no apparent distress. ill, slender, well groomed, well developed, vc1 well nourished, Behavior is calm, cooperative, appropriate for age. Pain: Complains of pain in right low back Pain currently is 6 out of 10 on a pain scale. EENT: Reports nasal congestion. Neuro: Level of Consciousness is awake, alert, obeys commands, Oriented to person, place, time, situation, Appropriate for age. Cardiovascular: Capillary refill < 3 seconds Patient's skin is warm and dry. Respiratory: Reports shortness of breath at rest cough that is pain with cough Airway is patent Respiratory effort is even, unlabored, Respiratory pattern is regular, symmetrical, the patient has mild shortness of breath. GI: No deficits noted. No signs and/or symptoms were reported involving the gastrointestinal system. : Reports pain in right in lower back. Derm: Skin is intact, is healthy with good turgor, Skin is dry. Musculoskeletal: Circulation, motion, and sensation intact. Historical: - Allergies: 19:28 No Known Allergies; vc1 - Home Meds: 19:28 None [Active]; vc1 - PMHx: 19:28 None; vc1 - PSHx: 19:28 None; vc1 - Immunization history:: Client reports having NOT received the Covid vaccine. - Infectious Disease History:: Denies. - Social history:: Smoking status: Patient reports the use of cigarette tobacco products, few a day. - Family history:: not pertinent. Screenin:[address] [facility] ED Fall Risk Assessment (Adult) History of falling in the last 3 months, cp4 including since admission No falls in past 3 months (0 pts) Confusion or Disorientation No (0 pts) Intoxicated or Sedated No (0 pts) Impaired Gait No (0 pts) Mobility Assist Device Used No (0 pt) Altered Elimination No (0 pt) Score/Fall Risk Level 0 - 2 = Low Risk Oriented to surroundings, Maintained a safe environment, Assessed \T\ reinforced patient's understanding of fall precautions, Hourly rounding (assess needs \T\ fall precautionary measures) done. Abuse screen: Denies threats or abuse. Denies injuries from another. Nutritional screening: No deficits noted. Tuberculosis screening: No symptoms or risk factors identified. Assessment: 21:48 General: Appears in no apparent distress. comfortable, Behavior is calm, cooperative, cp4 appropriate for age. Pain: Complains of pain in back and right low back Pain began. Neuro: Level of Consciousness is awake, alert, obeys commands, Oriented to person, place, time, situation. Cardiovascular: Patient's skin is warm and dry. Respiratory: Airway is patent Respiratory effort is even, unlabored. GI: No signs and/or symptoms were reported involving the gastrointestinal system. : No signs and/or symptoms were reported regarding the genitourinary system. EENT: No signs and/or symptoms were reported regarding the EENT system. Derm: No signs and/or symptoms reported regarding the dermatologic system. Musculoskeletal: No signs and/or symptoms reported regarding the musculoskeletal system. Vital Signs: 19:25 BP 156 / 92; Pulse 82; Resp 18; Temp 99.2; Pulse Ox 99% ; Weight 83.91 kg; Height 6 ft. vc1 0 in. ; Pain 6/10; 21:40 BP 137 / 90; Pulse 76; Resp 18; Pulse Ox 99% ; cp4 22:46 BP 134 / 88; Pulse 74; Resp 18; Pulse Ox 99% ; cp4 19:25 Body Mass Index 25.09 (83.91 kg, 182.88 cm) vc1 19:25 Pain Scale: Adult vc1 Zulema Coma Score: 11/28 20:29 Eye Response: spontaneous(4). Motor Response: obeys commands(6). Verbal Response: sp4 oriented(5). Total: 15. ED Course: 11/27 19:02 Patient arrived in ED. al6 19:28 Triage completed. vc1 19:29 Arm band placed on right wrist. vc1 19:36 Urinalysis w/ reflexes Sent. vc1 19:36 Group A Streptococcus Rapid Sent. vc1 19:36 COVID-19 Ag + Flu A+B Ag Sent. vc1 20:03 Andres Gallego MD is Attending Physician. sp4 20:18 Chest Pa And Lat (2 Views) XRAY In Process Unspecified. EDMS 20:38 Initial lab(s) drawn, by ED staff, sent to lab. Inserted saline lock: 20 gauge in right lg3 antecubital area, using aseptic technique. Blood collected. Flushed with 10 mL NS. 20:39 CBC with Diff Sent. lg3 20:39 CMP Sent. lg3 20:39 Lipase Sent. lg3 20:48 Lashawn Huddleston is Primary Nurse. cp4 21:41 CT Abd/Pelvis - IV Contrast Only In Process Unspecified. EDMS 21:48 Bed in low position. Call light in reach. Side rails up X 1. cp4 21:48 No provider procedures requiring assistance completed. cp4 22:47 Provided Education on: viral illness. cp4 22:47 intact, bleeding controlled, No redness/swelling at site. Pressure dressing applied. cp4 Administered Medications: 19:36 Drug: Ibuprofen PO 800 mg PO once Route: PO; vc1 19:36 Drug: Acetaminophen PO 1000 mg PO once Route: PO; vc1 20:54 Drug: TORadol - Ketorolac IVP 15 mg IVP once Route: IVP; Site: right antecubital; cp4 21:27 Follow up: Response: No adverse reaction; Pain is decreased cp4 20:54 Drug: Ondansetron IVP 4 mg IVP once; over 2 minutes Route: IVP; Site: right antecubital;cp4 21:27 Follow up: Response: No adverse reaction cp4 20:54 Drug: NS 0.9% IV 1000 ml IV at 1 bolus Per protocol; to be given as a bolus over 60 cp4 minutes Route: IV; Rate: 1 bolus; Site: right antecubital; 22:45 Follow up: IV Status: Completed infusion cp4 Medication: 21:48 VIS not applicable for this client. cp4 Outcome: 22:36 Discharge ordered by . sp4 22:47 Discharged to home ambulatory, cp4 22:47 Condition: stable 22:47 Discharge instructions given to patient, Instructed on discharge instructions, follow up and referral plans. medication usage, Demonstrated understanding of instructions, follow-up care, medications, Prescriptions given X 4, 22:48 Patient left the ED. cp4 Signatures: Dispatcher [employer] EDMS Cristal Arrieta RN RN lg3 Ariana Ceron RN RN vc1 Andres Gallego MD MD sp4 Lashawn Huddleston cp4 Maddie Sen Corrections: (The following items were deleted from the chart) 19:29 19:28 PSHx: Unable to Obtain; vc1 vc1
[2024-11-28 05:23] VITALS: TEMP 99.2; O2SAT 99
[2024-11-28 05:26] VITALS: BP 134/88
== END 2024-11-27 22:48 | disposition home or self-care (01) ==
LOC: ER 19:00
DX: B34.9 Viral infection, unspecified (principal); Z72.0 Tobacco use; Z11.52 Encounter for screening for COVID-19
CPT/HCPCS: 36415; 71046; 74177; 80053; 81001; 83690; 85025; 87070; 87428; J2405; J7030; Q9967